=== PATIENT | female | born 1970 | race Caucasian/White ===

== ENCOUNTER 2017-09-29 08:51 | Emergency (ER) | payer MEDICAID ==
[~2017-09-29] VITALS: Ht 160 cm; Wt 101.0 kg
[~2017-09-29 08:51] MED LIST: BACT800T5 PO; IBUP600 PO; LORTA5 PO
[2017-09-29 08:53] VITALS: BP 161/102; PULSE 77; RESP 15; TEMP 98.2; O2SAT 98
[2017-09-29] MEDS ORDERED: DICY20TA10 PO (09:22)
[2017-09-29] MEDS ORDERED: AMLO10TA2 PO (09:22)
[2017-09-29] MEDS ORDERED: METF500T PO (09:22)
[2017-09-29] MEDS ORDERED: MECL12.574 PO (09:22)
[2017-09-29] MEDS ORDERED: KETOROLAC TROMETHAMINE 30 MG/ML (IVP) VIAL IV PUSH ONE (10:30)
[2017-09-29 11:01] LABS: AUTOMATED NEUTROPHIL # 4.9 TH/MM3 (1.8-7.7); BASOPHIL # 0.1 TH/MM3 (0-0.2); BASOPHIL % 0.9 % (0.0-2.0); EOSINOPHIL # 0.2 TH/MM3 (0-0.4); EOSINOPHIL % 2.4 % (0.0-4.0); HEMATOCRIT 41.3 % (35.0-46.0); HEMO FLAGS DIFF FINAL; LYMPH % 33.8 % (9.0-44.0); MEAN CELL VOLUME 89.5 FL (80.0-100.0); MEAN CORPUSCULAR HEMOGLOBIN 30.6 PG (27.0-34.0); MEAN CORPUSCULAR HGB CONC 34.2 % (32.0-36.0); MONO % 7.2 % (0.0-8.0); NEUT % 55.7 % (16.0-70.0); PLATELET COUNT 278 TH/MM3 (150-450); RED BLOOD COUNT 4.61 MIL/MM3 (4.00-5.30); RED CELL DISTRIBUTION WIDTH 12.9 % (11.6-17.2); WHITE BLOOD COUNT 8.8 TH/MM3 (4.0-11.0)
[2017-09-29 11:23] LABS: ALT (GPT) 28 U/L (10-53); ANION GAP 8 MEQ/L (5-15); BLOOD UREA NITROGEN 10 MG/DL (7-18); CHLORIDE 104 MEQ/L (98-107); GLOMERULAR FILTRATION RATE 99 ML/MIN (>89); POTASSIUM 3.9 MEQ/L (3.5-5.1); SODIUM (NA) 139 MEQ/L (136-145)
[2017-09-29 11:26] LABS: ALKALINE PHOSPHATASE 83 U/L (45-117); AST (GOT) 18 U/L (15-37); TOTAL BILIRUBIN ADULT 0.4 MG/DL (0.2-1.0)
[2017-09-29 11:57] VITALS: BP 143/95; PULSE 67; RESP 18; O2SAT 99
--- NOTE | 2017-09-29 12:11 | PD ---
HPI Chief Complaint: Musculoskeletal Complaint Time Seen by Provider: 10:16 Travel History International Travel<30 days: No Contact w/Intl Traveler<30days: No Traveled to known affect area: No History of Present Illness HPI This is a 47-year-old female with a history of hypertension, chronic upper extremity pain and numbness and tingling, and presents here with complaints of numbness and tingling of her hands. Patient also reports pain in her hands. She denies any fevers, chills. She states when she was in [place], she was prescribed pills that helped her with this pain. She states that she no longer has these pills and does not know the name of the pills. The patient is Turkmen-speaking and I asked if she wished to use an freelance interpreter/translator. She states that she was comfortable using the Turkmen-speaking nurse who had previously cared for her. I insisted that we use an freelance interpreter/translator and she again declined. PFSH Past Medical History Arthritis: Yes Anxiety: Yes Depression: No Heart Rhythm Problems: No Cancer: No Cardiovascular Problems: Yes High Cholesterol: No Chest Pain: Yes Congestive Heart Failure: No Diabetes: Yes Patient Takes Glucophage: Yes Diminished Hearing: No Endocrine: No Gastrointestinal Disorders: Yes (GASTROPARESIS) GERD: Yes Genitourinary: No Headaches: Yes Hiatal Hernia: Yes Hypertension: Yes Immune Disorder: No Implanted Vascular Access Dvce: No Musculoskeletal: Yes Neurologic: Yes Psychiatric: Yes Reproductive: No Respiratory: No Immunizations Current: Yes Ulcer: No Tetanus Vaccination: > 5 Years Influenza Vaccination: No ?: Not Menopausal: Yes : 5 Para: 3 Miscarriage: 2 Past Surgical History Abdominal Surgery: Yes (TUMMY TUCK, GALL BLADDER REMOVED, SCAR TISSUE REMOVAL x3) Appendectomy: Yes Section: Yes Cholecystectomy: Yes Gynecologic Surgery: Yes (PARTIAL HYSTERECTOMY) Hysterectomy: Yes Other Surgery: Yes (ABDOMINOPLASTY 2006) Social History Alcohol Use: No Tobacco Use: No Substance Use: No Allergies-Medications (Allergen,Severity, Reaction): Coded Allergies: penicillin G (Verified Allergy, Intermediate, RASH, 09/29/17) morphine (Verified Adverse Reaction, Severe, Nausea/Vomiting, 09/29/17) Reported Meds & Prescriptions Reported Meds & Active Scripts Active Naproxen 375 Mg Tab 375 Mg PO BID Reported Amlodipine (Amlodipine Besylate) 10 Mg Tab 10 Mg PO DAILY Metformin (Metformin HCl) 500 Mg Tab 500 Mg PO DAILY With a meal Meclizine (Meclizine HCl) 12.5 Mg Tab 12.5 Mg PO TID PRN Dicyclomine (Dicyclomine HCl) 20 Mg Tab 20 Mg PO BID Review of Systems Except as stated in HPI: all other systems reviewed are Neg General / Constitutional: No: Fever, Chills HENT: No: Headaches, Lightheadedness Cardiovascular: No: Chest Pain or Discomfort, Palpitations Respiratory: No: Cough Gastrointestinal: No: Nausea, Vomiting Genitourinary: No: Urgency Musculoskeletal: Positive: Pain (bilateral hands), No: Myalgias, Weakness Neurologic: Positive: Sensory Disturbance (numbness and tingling of hands and arms.), No: Weakness, Dizziness, Focal Abnormalities, Headache Physical Exam Narrative GENERAL: Well developed well-nourished female in no acute respiratory distress. SKIN: Focused skin assessment warm/dry. HEAD: Atraumatic. Normocephalic. EYES: Pupils equal and round. No scleral icterus. No injection or drainage. ENT: No nasal bleeding or discharge. Mucous membranes pink and moist. NECK: Trachea midline. Supple. CARDIOVASCULAR: Regular rate and rhythm. No murmur appreciated. RESPIRATORY: No accessory muscle use. Clear to auscultation. Breath sounds equal bilaterally. GASTROINTESTINAL: Abdomen soft, non-tender, nondistended. Hepatic and splenic margins not palpable. MUSCULOSKELETAL: No obvious deformities. No clubbing. No cyanosis. No edema. NEUROLOGICAL: Awake and alert. No obvious cranial nerve deficits. Motor grossly within normal limits. Normal speech. Subjective numbness and tingling to hands and forearms. PSYCHIATRIC: Appropriate mood and affect; insight and judgment normal. Data Data Last Documented VS Vital Signs Date Time Temp Pulse Resp B/P (MAP) Pulse Ox O2 Delivery O2 Flow Rate FiO2 09/29/17 11:57 67 18 143/95 (111) 99 Room Air 09/29/17 08:53 98.2 Orders Orders Complete Blood Count With Diff (09/29/17 10:16) Comprehensive Metabolic Panel (09/29/17 10:16) Iv Access Insert/Monitor (09/29/17 10:16) Ecg Monitoring (09/29/17 10:16) Oximetry (09/29/17 10:16) Ketorolac Inj (Toradol Inj) (09/29/17 10:30) Labs Laboratory Tests Test 09/29/17 10:40 White Blood Count 8.8 TH/MM3 Red Blood Count 4.61 MIL/MM3 Hemoglobin 14.1 GM/DL Hematocrit 41.3 % Mean Corpuscular Volume 89.5 FL Mean Corpuscular Hemoglobin 30.6 PG Mean Corpuscular Hemoglobin Concent 34.2 % Red Cell Distribution Width 12.9 % Platelet Count 278 TH/MM3 Mean Platelet Volume 8.7 FL Neutrophils (%) (Auto) 55.7 % Lymphocytes (%) (Auto) 33.8 % Monocytes (%) (Auto) 7.2 % Eosinophils (%) (Auto) 2.4 % Basophils (%) (Auto) 0.9 % Neutrophils # (Auto) 4.9 TH/MM3 Lymphocytes # (Auto) 3.0 TH/MM3 Monocytes # (Auto) 0.6 TH/MM3 Eosinophils # (Auto) 0.2 TH/MM3 Basophils # (Auto) 0.1 TH/MM3 CBC Comment DIFF FINAL Differential Comment Blood Urea Nitrogen 10 MG/DL Creatinine 0.64 MG/DL Random Glucose 97 MG/DL Total Protein 8.4 GM/DL Albumin 3.6 GM/DL Calcium Level 8.8 MG/DL Alkaline Phosphatase 83 U/L Aspartate Amino Transf (AST/SGOT) 18 U/L Alanine Aminotransferase (ALT/SGPT) 28 U/L Total Bilirubin 0.4 MG/DL Sodium Level 139 MEQ/L Potassium Level 3.9 MEQ/L Chloride Level 104 MEQ/L Carbon Dioxide Level 27.0 MEQ/L Anion Gap 8 MEQ/L Estimat Glomerular Filtration Rate 99 ML/MIN [facility] Medical Decision Making Medical Screen Exam Complete: Yes Emergency Medical Condition: Yes Differential Diagnosis Neuropathy versus metabolic arrangement versus Raynaud's phenomenon Narrative Course 47-year-old female presents today with complaints of acute exacerbation of chronic upper extremity pain and numbness and tingling. Patient was treated in [place] for the same. She states that she does not recall the medication that they gave her. The patient's elect lites are all within normal limits. She was given 30 mg of IVD Toradol. She states that it greatly improved her discomfort. Discharged with a prescription for Naprosyn 375 by mouth twice a day as needed. I recommended she follow up with a neurologist for further evaluation to make sure that this is not neuropathy related. Diagnosis Primary Impression: bilateral upper extremity pain and numbness and tingling. Additional Impression: History of diabetes mellitus Additional Instructions: Follow up with neurologist. Take medication with food. Med/Other Pt SpecificInfo: Prescription(s) given Scripts Naproxen (Naproxen) 375 Mg Tab 375 MG PO BID, #60 TAB 0 Refills Prov: Jamal Savage MD 09/29/17 Disposition: 01 DISCHARGE HOME Condition: Stable Jamal Savage MD Sep 29, 2017 12:11
[2017-09-29] MEDS ORDERED: NAPR-855 PO (12:44)
[2017-09-29 13:20] VITALS: BP 131/88
== END 2017-09-29 13:20 | disposition home or self-care (01) ==
LOC: NEPE 08:51
DX: M79.601 Pain in right arm (principal); M79.602 Pain in left arm; R20.0 Anesthesia of skin; R20.2 Paresthesia of skin; E11.9 Type 2 diabetes mellitus without complications; I10 Essential (primary) hypertension; Z79.84 Long term (current) use of oral hypoglycemic drugs
CPT/HCPCS: 80053; 85025; 96374; 99284; J1885

== ENCOUNTER 2018-06-12 06:23 | Observation (INO) ==
--- NOTE | 2018-06-12 06:44 | ED ---
HPI General Chief Complaint: Abdominal Pain Stated Complaint: Abd pain Time Seen by Provider: 06/12/18 06:49 Source: patient Mode of arrival: ambulatory History of Present Illness HPI narrative: 48-year-old female patient with history of multiple medical issues, previous vertigo, gastroparesis, cholecystectomy, presents to the ER today with a 10 out of 10 upper abdominal pain, nausea, and dizziness. She denies any vomiting, fevers, or other symptoms. Symptoms are similar to previous episodes according to her . However, he states that this is a bit different because she states that it feels like she is very dizzy, when she closes her eyes it feels like she is falling into a big hole. Related Data Home Medications Medication Instructions Recorded Confirmed amlodipine 10 mg PO DAILY 06/12/18 06/12/18 ibuprofen [Motrin IB] 800 mg PO TID 06/12/18 06/12/18 metformin 500 mg PO DAILY 06/12/18 06/12/18 metoclopramide HCl 5 mg PO TID 06/12/18 06/12/18 -[id number] oil 1 cap PO DAILY 06/12/18 06/12/18 omeprazole 20 mg PO DAILY 06/12/18 06/12/18 ondansetron HCl 4 mg PO TID PRN 06/12/18 06/12/18 polymyxin B sulf-trimethoprim 1 drp OPHTHALMIC (EYE) Q3H 06/12/18 06/12/18 timolol maleate 1 drop EACH EYE BID 06/12/18 06/12/18 Allergies Allergy/AdvReac Type Severity Reaction Status Date / Time penicillin G Allergy Intermediate RASH Verified 06/12/18 06:28 morphine AdvReac Severe Nausea/Vomi Verified 06/12/18 06:28 ting Review of Systems Except as stated in HPI: all other systems reviewed are negative PMFSH History History Provided By: Patient and Family Member Medical History Medical History Colon polyp (Acute) Diabetes (Acute) Diverticulosis (Acute) Fibroid uterus (Acute) Hx of hysterectomy (Acute) Hypertension (Acute) IBS (irritable bowel syndrome) (Acute) Surgical History Surgical History H/O eye surgery (Acute) History of abdominoplasty (Acute) History of cholecystectomy (Acute) History of myomectomy (Acute) Social History Social History Substance History: No History of Abuse Second Hand Smoke Exposure: No Smoking Status: Never smoker Tobacco Type: Cigarettes How Often Do You Have a Drink Containing Alcohol: Never Recent Travel in [facility] within the Last 8 Weeks: No Recent Out of Country Travel within the Last 8 Weeks: No Exam Narrative Exam Narrative: GENERAL: Well-developed obese middle-age female patient currently in moderate distress, fairly anxious. Awake and oriented 3. SKIN: Focused skin assessment warm/dry. HEAD: Atraumatic. Normocephalic. EYES: Pupils equal and round. No scleral icterus. No injection or drainage. ENT: No nasal bleeding or discharge. Mucous membranes pink and moist. NECK: Trachea midline. No JVD. CARDIOVASCULAR: Regular rate and rhythm. No murmur appreciated. RESPIRATORY: No accessory muscle use. Clear to auscultation. Breath sounds equal bilaterally. GASTROINTESTINAL: Abdomen soft, obese, right upper quadrant and epigastric tenderness without guarding rebound, nondistended. Hepatic and splenic margins not palpable. MUSCULOSKELETAL: No obvious deformities. No clubbing. No cyanosis. No edema. NEUROLOGICAL: Awake and alert. No obvious cranial nerve deficits. Motor grossly within normal limits. Normal speech. PSYCHIATRIC: Anxious mood and affect; insight and judgment normal. Course Hospital Course: Lab work, EKG and CAT scan was ordered for the patient. She was given IV fluids and nausea medications. Initial Documented Vital Signs Temperature 97.9 F 06/12/18 06:25 Pulse Rate 70 06/12/18 06:25 Respiratory Rate 20 06/12/18 06:25 Blood Pressure 168/89 H 06/12/18 06:25 Pulse Oximetry 99 06/12/18 06:25 Last Documented Vital Signs Temperature 97.9 F 06/13/18 04:00 Pulse Rate 77 06/13/18 04:00 Respiratory Rate 18 06/13/18 04:00 Blood Pressure 124/81 06/13/18 04:00 Pulse Oximetry 98 06/13/18 04:00 Sign Out Sign Out Data: Patient Sign Out occurred on 06/12/18 at 07:37. Patient's care was discussed, and care was transferred from Leonel Ortega MD to Jamal Savage MD. Sign Out Comment: Case is signed out to oncoming physician at 7 AM lab work and CAT scan workup. Disposition based on reevaluation findings. Last updated by Leonel Ortega MD at 06/12/18 06:52 Medical Decision Making MDM Narrative Medical decision making narrative: The patient was signed out to me by Dr. Ortega change of shift. The patient had presented with complaints of abdominal pain and dizziness. The patient has a history of diabetes mellitus, hypertension and gastroparesis. CT scan of both the head and abdomen are negative. The labs are essentially negative. The patient was noted to have 2 separate episodes of desaturations into the low 60s when falling asleep. Concern this could be related to her dizziness that she experienced. states it was more severe this morning than she has ever had. Given this, I would recommend that she be admitted under observation for possible workup for home O2 until she can have an appropriate sleep study. Case was discussed with the resident team under Dr. Avila. Differential Diagnosis Differential Diagnosis: Gastroenteritis versus gastroparesis versus benign positional vertigo versus anxiety attack Lab Data Result diagrams: 06/12/18 06:45 06/12/18 06:45 Lab Results 06/12/18 06/12/18 06/12/18 Range/Units 06:45 06:45 09:50 WBC 10.3 (4.0-11.0) th/mm3 RBC 4.60 (4.00-5.30) mil/mm3 Hgb 13.7 (11.6-15.3) gm/dL Hct 41.0 (35.0-46.0) % MCV 89.2 (80.0-100.0) fL MCH 29.9 (27.0-34.0) pg MCHC 33.5 (32.0-36.0) % RDW 13.7 (11.6-17.2) % Plt Count 288 (150-450) th/mm3 MPV 9.0 (7.0-11.0) fL Neut % (Auto) 67.6 (16.0-70.0) % Lymph % (Auto) 25.2 (9.0-44.0) % Glenn % (Auto) 5.1 (0.0-8.0) % Eos % (Auto) 1.7 (0.0-4.0) % Baso % (Auto) 0.4 (0.0-2.0) % Neut # (Auto) 7.0 (1.8-7.7) th/mm3 Lymph # (Auto) 2.6 (1.0-4.8) th/mm3 Glenn # (Auto) 0.5 (0.0-0.9) th/mm3 Eos # (Auto) 0.2 (0.0-0.4) th/mm3 Baso # (Auto) 0.0 (0.0-0.2) th/mm3 WBC Differential . Differential Comment Auto diff final Sodium 138 (136-145) meq/L Potassium 3.9 (3.5-5.1) meq/L Chloride 105 (98-107) meq/L Carbon Dioxide 25.2 (21.0-32.0) meq/L Anion Gap 8 (5-15) meq/L BUN 13 (7-18) mg/dL Creatinine 0.74 (0.50-1.00) mg/dL Estimated GFR 83 L (>89) mL/min POC Glucose (68-110) mg/dl Random Glucose 173 H (74-106) mg/dL Calcium 9.0 (8.5-10.1) mg/dL Total Bilirubin 0.2 (0.2-1.0) mg/dL AST 37 (15-37) U/L ALT 58 H (10-53) U/L Alkaline Phosphatase 102 (45-117) U/L Troponin I (0.02-0.05) ng/mL Total Protein 8.3 H (6.4-8.2) g/dL Albumin 3.8 (3.4-5.0) g/dL Lipase 209 (73-393) U/L Urine Color Colorless (Yellw/Straw) Urine Clarity Clear (Clear) Urine pH 7.0 (5.0-8.5) Ur Specific [place] 1.019 (1.002-1.035) Urine Protein 100 H (Neg-Trace) mg/dL Urine Glucose (UA) Negative (Negative) mg/dL Urine Ketones Negative (Negative) mg/dL Urine Occult Blood Small H (Negative) Urine Nitrate Negative (Negative) Urine Bilirubin Negative (Negative) Urine Urobilinogen Less than 2 (Less than 2) mg/dL Ur Leukocyte Esterase Negative (Negative) Urine RBC 1 (0-3) /hpf Urine WBC 1 (0-5) /hpf Micro UA Comment Culture not ind Urine Culture Comments Culture not ind 06/12/18 06/12/18 06/12/18 Range/Units 15:41 18:18 19:52 WBC (4.0-11.0) th/mm3 RBC (4.00-5.30) mil/mm3 Hgb (11.6-15.3) gm/dL Hct (35.0-46.0) % MCV (80.0-100.0) fL MCH (27.0-34.0) pg MCHC (32.0-36.0) % RDW (11.6-17.2) % Plt Count (150-450) th/mm3 MPV (7.0-11.0) fL Neut % (Auto) (16.0-70.0) % Lymph % (Auto) (9.0-44.0) % Glenn % (Auto) (0.0-8.0) % Eos % (Auto) (0.0-4.0) % Baso % (Auto) (0.0-2.0) % Neut # (Auto) (1.8-7.7) th/mm3 Lymph # (Auto) (1.0-4.8) th/mm3 Glenn # (Auto) (0.0-0.9) th/mm3 Eos # (Auto) (0.0-0.4) th/mm3 Baso # (Auto) (0.0-0.2) th/mm3 WBC Differential Differential Comment Sodium (136-145) meq/L Potassium (3.5-5.1) meq/L Chloride (98-107) meq/L Carbon Dioxide (21.0-32.0) meq/L Anion Gap (5-15) meq/L BUN (7-18) mg/dL Creatinine (0.50-1.00) mg/dL Estimated GFR (>89) mL/min POC Glucose 126 H 178 H (68-110) mg/dl Random Glucose (74-106) mg/dL Calcium (8.5-10.1) mg/dL Total Bilirubin (0.2-1.0) mg/dL AST (15-37) U/L ALT (10-53) U/L Alkaline Phosphatase (45-117) U/L Troponin I Less than 0.02 L (0.02-0.05) ng/mL Total Protein (6.4-8.2) g/dL Albumin (3.4-5.0) g/dL Lipase (73-393) U/L Urine Color (Yellw/Straw) Urine Clarity (Clear) Urine pH (5.0-8.5) Ur Specific [place] (1.002-1.035) Urine Protein (Neg-Trace) mg/dL Urine Glucose (UA) (Negative) mg/dL Urine Ketones (Negative) mg/dL Urine Occult Blood (Negative) Urine Nitrate (Negative) Urine Bilirubin (Negative) Urine Urobilinogen (Less than 2) mg/dL Ur Leukocyte Esterase (Negative) Urine RBC (0-3) /hpf Urine WBC (0-5) /hpf Micro UA Comment Urine Culture Comments Imaging Data Radiologist's impression: Abdomen/Pelvis CT 06/12/18 06:42 CONCLUSION: 1. Fatty liver. 2. Radiopaque densities in the patient's rectum not present previously of uncertain etiology. Head CT 06/12/18 06:47 CONCLUSION: No acute intracranial abnormality is identified. Discharge Plan Discharge Disposition Patient Disposition: 30 Still Patient Discharge Details Diagnosis: Oxygen desaturation during sleep, Dizziness, Abdominal pain, Diabetes mellitus , Diabetic gastroparesis Physicians Team ED Provider: Jamal Savage Primary Care Provider: Judi Lopez Attending Provider: Alesha Avila Status ED Status: Left Department Discharge Information Discharge Date/Time: 06/12/18 17:07
[2018-06-12 07:18] LABS: Baso % (Auto) 0.4 % (0.0-2.0); Eos # (Auto) 0.2 th/mm3 (0.0-0.4); Eos % (Auto) 1.7 % (0.0-4.0); Hemoglobin 13.7 gm/dL (11.6-15.3); Lymph # (Auto) 2.6 th/mm3 (1.0-4.8); Lymph % (Auto) 25.2 % (9.0-44.0); Mean Corpuscular HGB Conc 33.5 % (32.0-36.0); Mean Corpuscular Hemoglobin 29.9 pg (27.0-34.0); Mean Corpuscular Volume 89.2 fL (80.0-100.0); Mono # (Auto) 0.5 th/mm3 (0.0-0.9); Mono % (Auto) 5.1 % (0.0-8.0); Neut % (Auto) 67.6 % (16.0-70.0); Platelet Count 288 th/mm3 (150-450); Red Cell Distribution Width 13.7 % (11.6-17.2); White Blood Count 10.3 th/mm3 (4.0-11.0)
[2018-06-12 07:38] LABS: Alanine Aminotransferase 58 U/L (10-53); Albumin 3.8 g/dL (3.4-5.0); Anion Gap 8 meq/L (5-15); Aspartate Aminotransferase 37 U/L (15-37); Blood Urea Nitrogen 13 mg/dL (7-18); Carbon Dioxide 25.2 meq/L (21.0-32.0); Chloride 105 meq/L (98-107); Glomerular Filtration Rate 83 mL/min (>89); Glucose,Random 173 mg/dL (74-106); Lipase 209 U/L (73-393); Potassium 3.9 meq/L (3.5-5.1); Sodium 138 meq/L (136-145)
[2018-06-12 07:40] LABS: Alkaline Phosphatase 102 U/L (45-117); Total Protein 8.3 g/dL (6.4-8.2)
--- NOTE | 2018-06-12 08:37 | CT ---
EXAM DATE: 06/12/2018 8:28 AM EDT AGE/SEX: 48 years / Female INDICATIONS: Dizziness and weakness. CLINICAL DATA: This is the patient's initial encounter. Patient reports that signs and symptoms have been present for 1 day and indicates a pain score of 0/10. MEDICAL/SURGICAL HISTORY: Diabetes. Hypertension. Hysterectomy. Cholecystectomy. RADIATION DOSE: 54.65 CTDI (mGy) COMPARISON: [facility], CT BRAIN W/O CONTRAST, 06/25/2013. . TECHNIQUE: CT of the head without contrast. Using automated exposure control and adjustment of the mA and/or kV according to patient size, radiation dose was kept as low as reasonably achievable to ob tain optimal diagnostic quality images. DICOM format image data is available electronically for revi ew and comparison. FINDINGS: Cerebrum: The ventricles are normal. No midline shift, mass lesion, hemorrhage or acute infarction. No extraaxial fluid collections are seen. Posterior Fossa: The cerebellum and brainstem demonstrate no acute abnormality. The 4th ventricle is midline. The cerebellopontine angle is within normal limits. Extracranial: There is mucoperiosteal thickening within the sphenoid sinus, similar to the prior exa mination. The remaining paranasal sinuses and mastoid air cells are clear. Skull: The calvaria is intact. No skull fracture. CONCLUSION: No acute intracranial abnormality is identified. Electronically signed by: Duy Ahs MD 06/12/2018 8:35 AM EDT
--- NOTE | 2018-06-12 09:10 | CT ---
EXAM DATE: 06/12/2018 8:36 AM EDT AGE/SEX: 48 years / Female INDICATIONS: Upper abdominal pain. Weakness. CLINICAL DATA: This is the patient's initial encounter. Patient reports that signs and symptoms have been present for 2 days and indicates a pain score of 7/10. MEDICAL/SURGICAL HISTORY: Diabetes. Hypertension. Cholecystectomy. Hysterectomy. ORAL CONTRAST: No oral contrast ingested. RADIATION DOSE: 16.95 CTDI (mGy) COMPARISON: [facility], CT ABDOMEN AND PELVIS W/ CONTRAST, 01/12/2018. . TECHNIQUE: Multiple contiguous axial images were obtained through the abdomen and pelvis following b olus infusion of 92 ml Omnipaque 350 (iohexol) nonionic water-soluble contrast as a single exam dos e. No oral contrast ingested. Using automated exposure control and adjustment of the mA and/or kV ac cording to patient size, radiation dose was kept as low as reasonably achievable to obtain optimal di agnostic quality images. DICOM format image data is available electronically for review and comparis on. FINDINGS: Abdomen CT: The spleen, pancreas, kidneys, adrenals are unremarkable. The liver is diffusely fatty without focal lesions for technique. There is evidence for prior cholecystectomy. There is no evidence for any sangeetha reciable pathological adenopathy, free fluid, or bowel obstruction. Pelvic CT: There is no evidence for mass, abscess formation, or any significant adenopathy within the pelvis. A pproximate 1.5 cm radiopaque density is present inside the rectum of uncertain etiology. CONCLUSION: 1. Fatty liver. 2. Radiopaque densities in the patient's rectum not present previously of uncertain etiology. Electronically signed by: Chavo Easton MD 06/12/2018 9:08 AM EDT
[2018-06-12 10:16] LABS: Bilirubin,Urine Negative (Negative); Clarity,Urine Clear (Clear); Color,Urine Colorless (Yellw/Straw); Glucose,Urine (UA) Negative (Negative); Leukocyte Esterase,Urine Negative (Negative); Nitrite,Urine Negative (Negative); Specific Gravity,Urine 1.019 (1.002-1.035)
[2018-06-12] MEDS ORDERED: Senna/Docusate Sodium 8.6/50 MG Tablet PO PRN (15:14)
[2018-06-12] MEDS ORDERED: Temazepam 15 MG Capsule PO PRN (15:14)
[2018-06-12] MEDS ORDERED: Bisacodyl 10 MG Supp RECTAL PRN (15:14)
[2018-06-12] MEDS ORDERED: Acetaminophen 325 MG Tablet PO PRN (15:20)
[2018-06-12] MEDS ORDERED: Dextrose 50% in Water 50 ML Vial IV.PUSH PRN (15:29)
--- NOTE | 2018-06-12 15:32 | P.HPFP ---
History of Present Illness Primary Care Physician: Judi Lopez MD <Alesha Avila 06/13/18 14:23> Judi Lopez MD <Elyse Granado 06/12/18 15:32> Chief Complaint: dizziness <Elyse Granado 06/12/18 19:18> History of Present Illness: Patient is a 48-year-old female with past medical history of diabetes complicated by gastroparesis, hypertension, and vertigo who presented to the ED with complaints of dizziness and nausea accompanied by Right sided abdominal pain. Patient reports that around 4 AM this morning she was getting up to use the bathroom, she felt feeling dizzy and laid in bed. She stated that she had a feeling like she was sinking. she reports a Right sided abdominal pain radiating to her right lower back. Denies any vomiting. She also reports pressure-like nonradiating midsternal chest pain brought on by deep breathing. Patient reports that when she lays flat she feels short of breath and usually sleeps propped with 3 pillows. Endorses generalized fatigue. Denies falling, fever, chills, LE swelling, diarrhea, dysuria and LOC. At home patient patient blood sugar was 126 and her blood pressure was 134/90. Of note patient also has a history of panic attacks last panic attack occurred 6 months ago due to the passing of her mother. In the ED patient was noted to have 2 episodes of O2 desaturation to the low 60s when asleep. Her saturations returned back to 9697% when she was awakened. <Elyse Granado 06/12/18 19:18> - Diagnosis (1) Dizziness (2) Oxygen desaturation during sleep (3) Abdominal pain (4) Hypertension (5) Diabetes mellitus (6) Diabetic gastroparesis (7) Nutrition, metabolism, and development symptoms <Alesha Avila 06/13/18 14:23> (1) Dizziness (2) Oxygen desaturation during sleep (3) Abdominal pain (4) Hypertension (5) Diabetes mellitus (6) Diabetic gastroparesis (7) Nutrition, metabolism, and development symptoms <Elyse Granado 06/12/18 18:21> Review of Systems All other systems reviewed negative except as stated in HPI <Elyse Granado 06/12/18 19:18> [facility] - History History Provided By: Patient, Family Member <Elyse Granado 06/12/18 15:32> - Medical History Medical History: Medical History (Last Updated 06/12/18 @ 16:19 by Norah Mandujano) Colon polyp Diabetes Diverticulosis Fibroid uterus Hx of hysterectomy Hypertension IBS (irritable bowel syndrome) <Alesha Avila - 06/13/18 14:23> Medical History (Last Updated 06/12/18 @ 16:19 by Norah Mandujano) Colon polyp Diabetes Diverticulosis Fibroid uterus Hx of hysterectomy Hypertension IBS (irritable bowel syndrome) <Elyse Granado 06/12/18 19:18> - Surgical History Surgical History: Surgical History (Last Updated 06/12/18 @ 16:19 by Norah Mandujano) H/O eye surgery History of abdominoplasty History of cholecystectomy History of myomectomy <Alesha Avila - 06/13/18 14:23> Surgical History (Last Updated 06/12/18 @ 16:19 by Norah Mandujano) H/O eye surgery History of abdominoplasty History of cholecystectomy History of myomectomy <Elyse Granado 06/12/18 19:18> - Tobacco History Second Hand Smoke Exposure: No <Elyse Granado 06/12/18 15:32> Smoking Status: Never smoker <Elyse Granado 06/12/18 15:32> Tobacco Type: Cigarettes <Elyse Granado 06/12/18 15:32> - Alcohol History How Often Do You Have a Drink Containing Alcohol: Never <Elyse Granado 15:32> - Substance Use History Substance History: No History of Abuse <Elyse Granado 06/12/18 15:32> - Travel History Recent Travel in the [place] Within the Last 8 Weeks: No <Elyse Granado 15:32> Recent Travel Out of the Country Within the Last 8 Weeks: No <Elyse Granado 06/12/18 15:32> - Immunization History Tetanus Immunization: >5 Years <Elyse Granado - 06/12/18 15:32> Hx Influenza Vaccine This Season: No <Elyse Granado D - 06/12/18 15:32> Medications and Allergies Allergies Allergy/AdvReac Type Severity Reaction Status Date / Time penicillin G Allergy Intermediate RASH Verified 06/12/18 06:28 morphine AdvReac Severe Nausea/Vomi Verified 06/12/18 06:28 ting <Alesha Avila M - 06/13/18 14:23> Home Medications Medication Instructions Recorded Confirmed Type amlodipine 10 mg PO DAILY 06/12/18 06/12/18 History ibuprofen [Motrin IB] 800 mg PO TID 06/12/18 06/12/18 History metformin 500 mg PO DAILY 06/12/18 06/12/18 History metoclopramide HCl 5 mg PO TID 06/12/18 06/12/18 History [id number] oil 1 cap PO DAILY 06/12/18 06/12/18 History omeprazole 20 mg PO DAILY 06/12/18 06/12/18 History ondansetron HCl 4 mg PO TID PRN 06/12/18 06/12/18 History polymyxin B sulf-trimethoprim 1 drp OPHTHALMIC (EYE) Q3H 06/12/18 06/12/18 History timolol maleate 1 drop EACH EYE BID 06/12/18 06/12/18 History <Alesha Avila - 06/13/18 14:23> Active Medications: Active Medications Acetaminophen (Tylenol) 650 mg PO Q6HR PRN PRN Reason: PAIN 1-10 AND/OR FEVER >101F Last Admin: 06/13/18 09:23 Dose: 650 mg Al Hydroxide/Mg Hydroxide (Milk Of Magnesia Liq) 30 ml PO Q12H PRN PRN Reason: Mild Constipation Amlodipine Besylate (Norvasc) 10 mg PO DAILY [facility] Last Admin: 06/13/18 09:22 Dose: 10 mg Bisacodyl (Dulcolax Supp) 10 mg RECTAL DAILY PRN PRN Reason: SEVERE CONSITIPATION Dextrose (D50w Vial) 50 ml IV.PUSH UNSCH PRN PRN Reason: PER HYPOGLYCEMIA PROTOCOL Erythromycin Ethylsuccinate (Ees 200 Mg/5 Ml Liq) 100 mg PO AC [facility] Glucagon (Glucagon Inj) 1 mg OTHER PRN PRN PRN Reason: for Hypoglycemia Protocol Insulin Aspart (Novolog Insulin Correctional Sugar Inj) 0 unit SQ ACHS [facility]; Protocol Last Admin: 06/13/18 09:27 Dose: Not Given Lactulose (Lactulose Liq) 30 ml PO DAILY PRN PRN Reason: SEVERE CONSITIPATION Metoclopramide HCl (Reglan) 5 mg PO TID [facility] Last Admin: 06/13/18 09:22 Dose: 5 mg Ondansetron HCl (Zofran Odt) 4 mg PO Q6H PRN PRN Reason: NAUSEA OR VOMITING Last Admin: 06/12/18 16:08 Dose: 4 mg Pantoprazole Sodium (Protonix) 20 mg PO DAILY [facility] Last Admin: 06/13/18 09:22 Dose: 20 mg Senna/Docusate Sodium (Kourtney-Colace) 1 tab PO BID PRN PRN Reason: SEVERE CONSTIPATION Sennosides (Senokot) 17.2 mg PO Q12H PRN PRN Reason: Moderate Constipation Sodium Chloride (Ns Flush) 2 ml IV.FLUSH PRN PRN PRN Reason: FLUSH AFTER USING IV ACCESS Temazepam (Restoril) 15 mg PO HS PRN PRN Reason: INSOMNIA Timolol Maleate (Timoptic 0.5% Drops) 1 drops EACH EYE BID [facility] Last Admin: 06/13/18 00:14 Dose: Not Given <Alesha Avila - 06/13/18 14:23> Active Medications Acetaminophen (Tylenol) 650 mg PO Q6HR PRN PRN Reason: PAIN 1-10 AND/OR FEVER >101F Al Hydroxide/Mg Hydroxide (Milk Of Magnesia Liq) 30 ml PO Q12H PRN PRN Reason: Mild Constipation Amlodipine Besylate (Norvasc) 10 mg PO DAILY [facility] Bisacodyl (Dulcolax Supp) 10 mg RECTAL DAILY PRN PRN Reason: SEVERE CONSITIPATION Dextrose (D50w Vial) 50 ml IV.PUSH UNSCH PRN PRN Reason: PER HYPOGLYCEMIA PROTOCOL Glucagon (Glucagon Inj) 1 mg OTHER PRN PRN PRN Reason: for Hypoglycemia Protocol Insulin Aspart (Novolog Insulin Correctional Sugar Inj) 0 unit SQ ACHS [facility]; Protocol Lactulose (Lactulose Liq) 30 ml PO DAILY PRN PRN Reason: SEVERE CONSITIPATION Non-Formulary Medication (Metoclopramide Hcl [Metoclopramide Hcl]) 5 mg PO TID [facility] Non-Formulary Medication (Omeprazole [Omeprazole]) 20 mg PO DAILY [facility] Ondansetron HCl (Zofran Odt) 4 mg PO Q6H PRN PRN Reason: NAUSEA OR VOMITING Senna/Docusate Sodium (Kourtney-Colace) 1 tab PO BID PRN PRN Reason: SEVERE CONSTIPATION Sennosides (Senokot) 17.2 mg PO Q12H PRN PRN Reason: Moderate Constipation Sodium Chloride (Ns Flush) 2 ml IV.FLUSH PRN PRN PRN Reason: FLUSH AFTER USING IV ACCESS Temazepam (Restoril) 15 mg PO HS PRN PRN Reason: INSOMNIA Timolol Maleate (Timoptic 0.5% Drops) drops EACH EYE BID [facility] <Elyse Granado D - 06/12/18 15:32> Exam Vital signs: Vital Signs 06/12/18 16:00 06/12/18 16:45 06/12/18 20:00 Temperature 98.3 F 97.7 F 97.9 F Pulse Rate 85 81 84 Respiratory Rate 20 20 18 Blood Pressure 159/65 H 135/74 138/75 Pulse Oximetry 93 L 94 L 06/12/18 23:55 06/13/18 00:00 06/13/18 04:00 Temperature 97.7 F 97.9 F Pulse Rate 88 84 68 Respiratory Rate 18 18 Blood Pressure 129/79 124/81 Pulse Oximetry 95 98 06/13/18 08:00 06/13/18 12:00 Temperature 97.4 F L 97.6 F Pulse Rate 70 73 Respiratory Rate 20 20 Blood Pressure 144/67 H 140/66 Pulse Oximetry 98 98 Intake & Output 06/12/18 06/13/18 06/13/18 18:59 06:59 18:59 Intake Total 240 / 240 360 / 360 Output Total 2 / 2 Balance 240 / 240 358 / 358 Weight 114.4 kg 114.8 kg Intake: Oral 240 / 240 360 / 360 Output: Urine 2 / 2 Other: # Voids 2 Weight On Admission 114.4 kg <Alesha Avila M - 06/13/18 14:23> Vital Signs 06/12/18 06:25 06/12/18 07:36 06/12/18 09:35 Temperature 97.9 F Pulse Rate 70 81 91 H Respiratory Rate 20 20 16 Blood Pressure 168/89 H 144/72 H 144/72 H Pulse Oximetry 99 97 95 06/12/18 09:40 06/12/18 09:42 06/12/18 13:30 Temperature Pulse Rate Respiratory Rate Blood Pressure Pulse Oximetry 65 L 95 62 L 06/12/18 13:32 06/12/18 14:17 Temperature Pulse Rate 81 Respiratory Rate 20 Blood Pressure 154/97 H Pulse Oximetry 95 96 Intake & Output 06/11/18 06/12/18 06/12/18 18:59 06:59 18:59 Weight 113.398 kg <Elyse Granado 06/12/18 15:32> - Constitutional no acute distress <Elyse Granado 06/12/18 19:18> - Routine HEENT Exam Eye: Present: EOMI, PERRL <Elyse Granado 06/12/18 19:18> ENT: Present: mucous membranes moist <Elyse Granado 06/12/18 19:18> - Routine Neck Exam Present: supple, full ROM. Absent: JVD <Elyse Granado 06/12/18 19:18> - Routine Chest/Breast/Axilla Exam Chest wall: Present: tenderness <Elyse Granado 06/12/18 19:18> - Routine Respiratory Exam Present: CTA bilaterally. Absent: accessory muscle use <Elyse Granado 19:18> - Routine Cardiovascular Exam Present: RRR, S1, S2. Absent: murmur, gallop, rubs <Elyse Granado 19:18> - Routine Abdominal Exam Present: soft, normoactive bowel sounds, tenderness (diffused tenderness to palpation, more pronounced on RUQ and RLQ and RIght flank pain. ). Absent: rebound, guarding <Elyse Granado 06/12/18 19:18> - Routine Extremities Exam Present: full ROM, pulses intact, normal capillary refill, tenderness (Mild Right medial ankle tenderness to palpation, chronic issue). Absent: cyanosis, clubbing, edema, calf tenderness <Elyse Granado 06/12/18 19:18> - Routine Skin Exam Present: intact. Absent: cyanosis, erythema <Elyse Granado - 06/12/18 19:18 > - Routine Neurological Exam Present: alert, oriented X3, CN II-XII intact, moving all extremities. Absent: sensory deficit, motor deficit <Elyse Granado - 06/12/18 19:18> Results - Labs Result diagrams: 06/13/18 06:02 06/13/18 06:02 <Alesha Avila - 06/13/18 14:23> Abnormal lab results 06/12/18 06/12/18 06/12/18 Range/Units 15:41 18:18 19:52 Estimated GFR (>89) mL/min POC Glucose 126 H 178 H (68-110) mg/dl Random Glucose (74-106) mg/dL Troponin I Less than 0.02 L (0.02-0.05) ng/mL 06/13/18 06/13/18 06/13/18 Range/Units 06:02 08:35 13:13 Estimated GFR 86 L (>89) mL/min POC Glucose 145 H 130 H (68-110) mg/dl Random Glucose 122 H (74-106) mg/dL Troponin I (0.02-0.05) ng/mL Short CBC 06/13/18 Range/Units 06:02 WBC 8.0 (4.0-11.0) th/mm3 Hgb 13.6 (11.6-15.3) gm/dL Hct 40.5 (35.0-46.0) % Plt Count 284 (150-450) th/mm3 [facility] 06/13/18 06:02 Sodium 142 Potassium 4.1 Chloride 103 Carbon Dioxide 30.8 BUN 12 Creatinine 0.72 Calcium 9.1 Cardiac Enzymes 06/12/18 Range/Units 15:41 Troponin I Less than 0.02 L (0.02-0.05) ng/mL <Alesha Avila - 06/13/18 14:23> Abnormal lab results 06/12/18 06/12/18 Range/Units 06:45 09:50 Estimated GFR 83 L (>89) mL/min Random Glucose 173 H (74-106) mg/dL ALT 58 H (10-53) U/L Total Protein 8.3 H (6.4-8.2) g/dL Urine Protein 100 H (Neg-Trace) mg/dL Urine Occult Blood Small H (Negative) Short CBC 06/12/18 Range/Units 06:45 WBC 10.3 (4.0-11.0) th/mm3 Hgb 13.7 (11.6-15.3) gm/dL Hct 41.0 (35.0-46.0) % Plt Count 288 (150-450) th/mm3 BMP 06/12/18 06:45 Sodium 138 Potassium 3.9 Chloride 105 Carbon Dioxide 25.2 BUN 13 Creatinine 0.74 Calcium 9.0 Liver Function 06/12/18 Range/Units 06:45 Total Bilirubin 0.2 (0.2-1.0) mg/dL AST 37 (15-37) U/L ALT 58 H (10-53) U/L Alkaline Phosphatase 102 (45-117) U/L Albumin 3.8 (3.4-5.0) g/dL Urine 06/12/18 Range/Units 09:50 Urine Color Colorless (Yellw/Straw) Urine Clarity Clear (Clear) Urine pH 7.0 (5.0-8.5) Ur Specific [place] 1.019 (1.002-1.035) Urine Protein 100 H (Neg-Trace) mg/dL Urine Glucose (UA) Negative (Negative) mg/dL <Elyse Granado - 06/12/18 15:32> - Imaging Impressions Abdomen/Pelvis CT 06/12/18 06:42 CONCLUSION: 1. Fatty liver. 2. Radiopaque densities in the patient's rectum not present previously of uncertain etiology. Head CT 06/12/18 06:47 CONCLUSION: No acute intracranial abnormality is identified. <Elyse Granado 06/12/18 15:32> Caprini VTE Risk Assessment Caprini VTE Risk Assessment: No/Low Risk (score <= 1) <Elyse Granado 06/12 19:18> Caprini Risk Assessment Model: Point Value = 1 Point Value = 2 Point Value = 3 Point Value = 5 Age 41-60 Minor surgery BMI > 25 kg/m2 Swollen legs Varicose veins or History of unexplained or recurrent spontaneous Oral contraceptives or hormone replacement Sepsis (< 1 month) Serious lung disease, including pneumonia (< 1 month) Abnormal pulmonary function Acute myocardial infarction Congestive heart failure (< 1 month) History of inflammatory bowel disease Medical patient at bed rest Age 61-74 Arthroscopic surgery Major open surgery (> 45 min) Laparoscopic surgery (> 45 min) Malignancy Confined to bed (> 72 hours) Immobilizing plaster cast Central venous access Age >= 75 History of VTE Family history of VTE Factor V Leiden Prothrombin [id number] Lupus anticoagulant Anticardiolipin antibodies Elevated serum homocysteine Heparin-induced thrombocytopenia Other congenital or acquired thrombophilia Stroke (< 1 month) Elective arthroplasty Hip, pelvis, or leg fracture Acute spinal cord injury (< 1 month) <Alseha Avila - 06/13/18 14:23> Point Value = 1 Point Value = 2 Point Value = 3 Point Value = 5 Age 41-60 Minor surgery BMI > 25 kg/m2 Swollen legs Varicose veins or History of unexplained or recurrent spontaneous Oral contraceptives or hormone replacement Sepsis (< 1 month) Serious lung disease, including pneumonia (< 1 month) Abnormal pulmonary function Acute myocardial infarction Congestive heart failure (< 1 month) History of inflammatory bowel disease Medical patient at bed rest Age 61-74 Arthroscopic surgery Major open surgery (> 45 min) Laparoscopic surgery (> 45 min) Malignancy Confined to bed (> 72 hours) Immobilizing plaster cast Central venous access Age >= 75 History of VTE Family history of VTE Factor V Leiden Prothrombin [id number] Lupus anticoagulant Anticardiolipin antibodies Elevated serum homocysteine Heparin-induced thrombocytopenia Other congenital or acquired thrombophilia Stroke (< 1 month) Elective arthroplasty Hip, pelvis, or leg fracture Acute spinal cord injury (< 1 month) <Elyse Granado - 06/12/18 15:32> Prophylaxis Regimen: Total Risk Factor Score Risk Level Prophylaxis Regimen 0-1 Low Early ambulation 2 Moderate Order ONE of the following: *Sequential Compression Device (SCD) *Heparin 5000 units SQ BID 3-4 Higher Order ONE of the following medications: *Heparin 5000 units SQ TID *Enoxaparin/Lovenox 40 mg SQ daily (WT < 150 kg, CrCl > 30 mL/min) *Enoxaparin/Lovenox 30 mg SQ daily (WT < 150 kg, CrCl > 10-29 mL/min) *Enoxaparin/Lovenox 30 mg SQ BID (WT < 150 kg, CrCl > 30 mL/min) AND/OR *Sequential Compression Device (SCD) 5 or more Highest Order ONE of the following medications: *Heparin 5000 units SQ TID (Preferred with Epidurals) *Enoxaparin/Lovenox 40 mg SQ daily (WT < 150 kg, CrCl > 30 mL/min) *Enoxaparin/Lovenox 30 mg SQ daily (WT < 150 kg, CrCl > 10-29 mL/min) *Enoxaparin/Lovenox 30 mg SQ BID (WT < 150 kg, CrCl > 30 mL/min) AND *Sequential Compression Device (SCD) <Alesha Avila - 06/13/18 14:23> Total Risk Factor Score Risk Level Prophylaxis Regimen 0-1 Low Early ambulation 2 Moderate Order ONE of the following: *Sequential Compression Device (SCD) *Heparin 5000 units SQ BID 3-4 Higher Order ONE of the following medications: *Heparin 5000 units SQ TID *Enoxaparin/Lovenox 40 mg SQ daily (WT < 150 kg, CrCl > 30 mL/min) *Enoxaparin/Lovenox 30 mg SQ daily (WT < 150 kg, CrCl > 10-29 mL/min) *Enoxaparin/Lovenox 30 mg SQ BID (WT < 150 kg, CrCl > 30 mL/min) AND/OR *Sequential Compression Device (SCD) 5 or more Highest Order ONE of the following medications: *Heparin 5000 units SQ TID (Preferred with Epidurals) *Enoxaparin/Lovenox 40 mg SQ daily (WT < 150 kg, CrCl > 30 mL/min) *Enoxaparin/Lovenox 30 mg SQ daily (WT < 150 kg, CrCl > 10-29 mL/min) *Enoxaparin/Lovenox 30 mg SQ BID (WT < 150 kg, CrCl > 30 mL/min) AND *Sequential Compression Device (SCD) <Elyse Granado - 06/12/18 15:32> Assessment and Plan - Assessment (1) Dizziness Code(s): R42 - Dizziness and giddiness Status: Acute (2) Oxygen desaturation during sleep Code(s): G47.34 - Idiopathic sleep related nonobstructive alveolar hypoventilation Status: Acute (3) Abdominal pain Code(s): R10.9 - Unspecified abdominal pain Status: Acute (4) Hypertension Code(s): I10 - Essential (primary) hypertension Status: Acute (5) Diabetes mellitus Code(s): E11.9 - Type 2 diabetes mellitus without complications Status: Acute (6) Diabetic gastroparesis Code(s): E11.43 - Type 2 diabetes mellitus with diabetic autonomic (poly) neuropathy; K31.84 - Gastroparesis Status: Acute (7) Nutrition, metabolism, and development symptoms Code(s): R63.8 - Other symptoms and signs concerning food and fluid intake Status: Acute <Alesha Avila - 06/13/18 14:23> (1) Dizziness Code(s): R42 - Dizziness and giddiness Status: Acute Plan: Patient reports episode of extreme dizziness accompanied by nausea this morning unable to get out of bed. He has been slightly resolved at time of interview. Patient has a history of vertigo that was previously treated with medication ( she does not remember the name) she has not taken the medication since September. (2) Oxygen desaturation during sleep Code(s): G47.34 - Idiopathic sleep related nonobstructive alveolar hypoventilation Status: Acute Plan: Patient with 2 episodes of O2 desaturations to the low 60s while asleep in the ED. Patient has a history of snoring and orthopnea for the past 2 years. Continue to monitor O2 saturations Discharge patient with O2 tank until the study can be done (3) Abdominal pain Code(s): R10.9 - Unspecified abdominal pain Status: Acute Plan: Patient with complaint of right-sided abdominal and flank pain accompanied by nausea may possibly related to her gastroparesis. Patient for blood tinged sputum as she was trying to make herself throw up this morning due to her increased sxs of nausea. H/H stable CT abd/pelvis: Fatty liver. Radiopaque densities in the patient's rectum not present previously of uncertain etiology. This may be iron pills. (4) Hypertension Code(s): I10 - Essential (primary) hypertension Status: Acute Plan: Continue with blood pressure medication (5) Diabetes mellitus Code(s): E11.9 - Type 2 diabetes mellitus without complications Status: Acute Plan: Patient with history of diabetes. Accu-Cheks Low-dose siding scale insulin (6) Diabetic gastroparesis Code(s): E11.43 - Type 2 diabetes mellitus with diabetic autonomic (poly) neuropathy; K31.84 - Gastroparesis Status: Acute Plan: Patient abdominal pain may be a complication of her gastroparesis Continue with home medication Zofran for nausea as needed (7) Nutrition, metabolism, and development symptoms Code(s): R63.8 - Other symptoms and signs concerning food and fluid intake Status: Acute Plan: Fluids: Not indicated at this time Electrolytes: P as needed Nutrition diabetic diet DVT prophylaxis SCDs <Elyse Granado - 06/12/18 18:21> - Attending Attestation The exam, history, and the medical decision-making described in the above note were completed with the assistance of the resident physician. I reviewed and agree with the findings presented. I attest that I had a [id number] encounter with the patient on the same day, and personally performed and documented my assessment and findings in the medical record. she was seen in the ED on admission with Grabiel Laguna <Alesha Avila - 06/13/18 14:23> <Elyse Granado D - Last Filed: 06/12/18 18:21> (3) Abdominal pain Qualifiers: Abdominal location: right upper quadrant Qualified Code(s): R10.11 - Right upper quadrant pain (5) Diabetes mellitus Qualifiers: Diabetes mellitus type: type 2 <Alesha Avila - Last Filed: 06/13/18 14:23> (3) Abdominal pain Qualifiers: Abdominal location: right upper quadrant Qualified Code(s): R10.11 - Right upper quadrant pain (5) Diabetes mellitus Qualifiers: Diabetes mellitus type: type 2 <Elyse Granado - Last Filed: 06/12/18 18:21> (3) Abdominal pain Qualifiers: Abdominal location: right upper quadrant Qualified Code(s): R10.11 - Right upper quadrant pain (5) Diabetes mellitus Qualifiers: Diabetes mellitus type: type 2 <Alesha Avila M - Last Filed: 06/13/18 14:23> (3) Abdominal pain Qualifiers: Abdominal location: right upper quadrant Qualified Code(s): R10.11 - Right upper quadrant pain (5) Diabetes mellitus Qualifiers: Diabetes mellitus type: type 2
[2018-06-12] MEDS: amLODIPine 10 MG Tablet PO SCH (16:08)
[2018-06-12] MEDS ORDERED: Non-Formulary Drug (Metoclopramide Hcl [Metoclopramide Hcl] 5 MG) PO SCH (18:00)
[2018-06-12] MEDS: Metoclopramide 10 MG Tablet PO SCH (18:45)
[2018-06-12] MEDS: Insulin NovoLOG Aspart Correctional Sugar Inj SQ SCH ×2 (18:50→21:25)
[2018-06-13] MEDS: Timolol 0.5% Drops 5 ML Bottle EACH EYE SCH ×3 (00:14→21:27)
[2018-06-13 07:18] LABS: Hematocrit 40.5 % (35.0-46.0); Hemoglobin 13.6 gm/dL (11.6-15.3); Mean Corpuscular HGB Conc 33.6 % (32.0-36.0); Mean Corpuscular Hemoglobin 29.8 pg (27.0-34.0); Mean Corpuscular Volume 88.5 fL (80.0-100.0); Mean Platelet Volume 8.7 fL (7.0-11.0); Platelet Count 284 th/mm3 (150-450); Red Blood Count 4.57 mil/mm3 (4.00-5.30); Red Cell Distribution Width 13.4 % (11.6-17.2)
[2018-06-13 07:38] LABS: Calcium 9.1 mg/dL (8.5-10.1); Carbon Dioxide 30.8 meq/L (21.0-32.0); Potassium 4.1 meq/L (3.5-5.1)
--- NOTE | 2018-06-13 09:20 | P.HPFP ---
History of Present Illness Primary Care Physician: Judi Lopez MD Chief Complaint: dizziness History of Present Illness: Patient is a 48-year-old female with past medical history of diabetes complicated by gastroparesis, hypertension, and vertigo who presented to the ED with complaints of dizziness and nausea accompanied by Right sided abdominal pain. Patient reports that around 4 AM she was getting up to use the bathroom , she felt dizzy and laid in bed. She stated that she had a feeling like she was sinking. she reports a Right sided abdominal pain radiating to her right lower back. Denies any vomiting. She also reports pressure-like nonradiating midsternal chest pain brought on by deep breathing. Patient reports that when she lays flat she feels short of breath and usually sleeps propped with 3 pillows. Endorses generalized fatigue. Denies falling, fever, chills, LE swelling, diarrhea, dysuria and LOC. At home patient patient blood sugar was 126 and her blood pressure was 134/90 during this episode. Of note patient also has a history of panic attacks last panic attack occurred 6 months ago due to the passing of her mother. In the ED patient was noted to have 2 episodes of O2 desaturation to the low 60s when asleep. Her saturations returned back to 9697% when she was awakened. Based on her multiple problems including trying to vomit forcefully and spitting out a small quantity of blood plus the low O2 sats, she was recommended for admission. This am she states he dizziness is worse when she turns her head from side to side or otherwise moves her head when changing positions like standing up or sitting down. She also complained of continuing abdominal pain. Erythromycin was attempted to see if it would help her gastroparesis and it seemed to but she was still having pain and other problems. Per her oldest son who was in the room, she has seen GI in the past and has had multiple tests but no evaluations for at least 3 years and she keeps getting worse. she is almost exclusively lithuanian speaking so her interview was aided by her son and Dr Granado today. - Diagnosis (1) Dizziness (2) Oxygen desaturation during sleep (3) Abdominal pain (4) Hypertension (5) Diabetes mellitus (6) Diabetic gastroparesis (7) Nutrition, metabolism, and development symptoms Review of Systems see ROS from original h&P PMFSH - History History Provided By: Patient, Family Member - Medical History Medical History: Medical History (Last Reviewed 06/13/18 @ 08:04 by Mariama Tobias) Colon polyp Diabetes Diverticulosis Fibroid uterus Hx of hysterectomy Hypertension IBS (irritable bowel syndrome) - Surgical History Surgical History: Surgical History (Last Reviewed 06/13/18 @ 08:05 by Mariama Tobias) H/O eye surgery History of abdominoplasty History of cholecystectomy History of myomectomy - Tobacco History Second Hand Smoke Exposure: No Tobacco Use In Past 30 Days: No Smoking Status: Never smoker Tobacco Type: Cigarettes - Alcohol History How Often Do You Have a Drink Containing Alcohol: Never - Substance Use History Substance History: No History of Abuse - Travel History Recent Travel in the [place] Within the Last 8 Weeks: No Recent Travel Out of the Country Within the Last 8 Weeks: No - Immunization History Tetanus Immunization: >5 Years Hx Influenza Vaccine This Season: No Medications and Allergies Active Medications: Active Medications Acetaminophen (Tylenol) 650 mg PO Q6HR PRN PRN Reason: PAIN 1-10 AND/OR FEVER >101F Al Hydroxide/Mg Hydroxide (Milk Of Magnesia Liq) 30 ml PO Q12H PRN PRN Reason: Mild Constipation Amlodipine Besylate (Norvasc) 10 mg PO DAILY [facility] Last Admin: 06/12/18 16:08 Dose: 10 mg Bisacodyl (Dulcolax Supp) 10 mg RECTAL DAILY PRN PRN Reason: SEVERE CONSITIPATION Dextrose (D50w Vial) 50 ml IV.PUSH UNSCH PRN PRN Reason: PER HYPOGLYCEMIA PROTOCOL Glucagon (Glucagon Inj) 1 mg OTHER PRN PRN PRN Reason: for Hypoglycemia Protocol Insulin Aspart (Novolog Insulin Correctional Sugar Inj) 0 unit SQ ACHS [facility]; Protocol Last Admin: 06/12/18 21:25 Dose: Not Given Lactulose (Lactulose Liq) 30 ml PO DAILY PRN PRN Reason: SEVERE CONSITIPATION Metoclopramide HCl (Reglan) 5 mg PO TID [facility] Last Admin: 06/12/18 18:45 Dose: 5 mg Ondansetron HCl (Zofran Odt) 4 mg PO Q6H PRN PRN Reason: NAUSEA OR VOMITING Last Admin: 06/12/18 16:08 Dose: 4 mg Pantoprazole Sodium (Protonix) 20 mg PO DAILY [facility] Senna/Docusate Sodium (Kourtney-Colace) 1 tab PO BID PRN PRN Reason: SEVERE CONSTIPATION Sennosides (Senokot) 17.2 mg PO Q12H PRN PRN Reason: Moderate Constipation Sodium Chloride (Ns Flush) 2 ml IV.FLUSH PRN PRN PRN Reason: FLUSH AFTER USING IV ACCESS Temazepam (Restoril) 15 mg PO HS PRN PRN Reason: INSOMNIA Timolol Maleate (Timoptic 0.5% Drops) 1 drops EACH EYE BID MANISHA Last Admin: 06/13/18 00:14 Dose: Not Given Allergies Allergy/AdvReac Type Severity Reaction Status Date / Time penicillin G Allergy Intermediate RASH Verified 06/12/18 06:28 morphine AdvReac Severe Nausea/Vomi Verified 06/12/18 06:28 ting Home Medications Medication Instructions Recorded Confirmed Type amlodipine 10 mg PO DAILY 06/12/18 06/12/18 History ibuprofen [Motrin IB] 800 mg PO TID 06/12/18 06/12/18 History metformin 500 mg PO DAILY 06/12/18 06/12/18 History metoclopramide HCl 5 mg PO TID 06/12/18 06/12/18 History [id number] oil 1 cap PO DAILY 06/12/18 06/12/18 History omeprazole 20 mg PO DAILY 06/12/18 06/12/18 History ondansetron HCl 4 mg PO TID PRN 06/12/18 06/12/18 History polymyxin B sulf-trimethoprim 1 drp OPHTHALMIC (EYE) Q3H 06/12/18 06/12/18 History timolol maleate 1 drop EACH EYE BID 06/12/18 06/12/18 History Exam Vital signs: Vital Signs 06/12/18 09:35 06/12/18 09:40 06/12/18 09:42 Temperature Pulse Rate 91 H Respiratory Rate 16 Blood Pressure 144/72 H Pulse Oximetry 95 65 L 95 06/12/18 13:30 06/12/18 13:32 06/12/18 14:17 Temperature Pulse Rate 81 Respiratory Rate 20 Blood Pressure 154/97 H Pulse Oximetry 62 L 95 96 06/12/18 16:00 06/12/18 16:45 06/12/18 20:00 Temperature 98.3 F 97.7 F 97.9 F Pulse Rate 85 81 84 Respiratory Rate 20 20 18 Blood Pressure 159/65 H 135/74 138/75 Pulse Oximetry 93 L 94 L 06/12/18 23:55 06/13/18 00:00 06/13/18 04:00 Temperature 97.7 F 97.9 F Pulse Rate 88 84 68 Respiratory Rate 18 18 Blood Pressure 129/79 124/81 Pulse Oximetry 95 98 Intake & Output 06/12/18 06/13/18 06/13/18 18:59 06:59 18:59 Intake Total 240 / 240 Balance 240 / 240 Weight 114.4 kg 114.8 kg Intake: Oral 240 / 240 Other: # Voids 2 Weight On Admission 114.4 kg - Constitutional no acute distress, morbidly obese, cooperative - Routine HEENT Exam Head: Present: normocephalic, atraumatic. Absent: abrasion, laceration, hematoma, facial swelling Eye: Present: EOMI. Absent: conjunctival icterus, scleral injection, periorbital swelling, periorbital tenderness, nystagmus ENT: Present: mucous membranes moist, oropharynx clear. Absent: septal deviation - Routine Neck Exam Present: supple, full ROM. Absent: tracheal deviation, trauma - Routine Chest/Breast/Axilla Exam Chest wall: Absent: tenderness - Routine Respiratory Exam Present: CTA bilaterally. Absent: accessory muscle use, prolonged expiratory phase, rales, respiratory distress, rhonchi - Routine Cardiovascular Exam Present: RRR. Absent: murmur, gallop, rubs, tachycardia, irregular rhythm, irregularly irregular - Routine Abdominal Exam Present: soft, tenderness, surgical scars. Absent: distended, rebound, guarding , firm, rigid, hernia, wound, drain - Routine Extremities Exam Absent: cyanosis, clubbing, edema, extremity cold to touch - Routine Skin Exam Present: intact, dry. Absent: cyanosis, erythema, mottling, petechiae, urticaria, cracked, gangrene - Routine Neurological Exam Present: alert, moving all extremities, normal tone. Absent: sensory deficit, motor deficit, altered mental status Results - Labs Result diagrams: 06/13/18 06:02 06/13/18 06:02 Abnormal lab results 06/12/18 06/12/18 06/12/18 Range/Units 09:50 15:41 18:18 Estimated GFR (>89) mL/min POC Glucose 126 H (68-110) mg/dl Random Glucose (74-106) mg/dL Troponin I Less than 0.02 L (0.02-0.05) ng/mL Urine Protein 100 H (Neg-Trace) mg/dL Urine Occult Blood Small H (Negative) 06/12/18 06/13/18 06/13/18 Range/Units 19:52 06:02 08:35 Estimated GFR 86 L (>89) mL/min POC Glucose 178 H 145 H (68-110) mg/dl Random Glucose 122 H (74-106) mg/dL Troponin I (0.02-0.05) ng/mL Urine Protein (Neg-Trace) mg/dL Urine Occult Blood (Negative) Short CBC 06/13/18 Range/Units 06:02 WBC 8.0 (4.0-11.0) th/mm3 Hgb 13.6 (11.6-15.3) gm/dL Hct 40.5 (35.0-46.0) % Plt Count 284 (150-450) th/mm3 BMP 06/13/18 06:02 Sodium 142 Potassium 4.1 Chloride 103 Carbon Dioxide 30.8 BUN 12 Creatinine 0.72 Calcium 9.1 Cardiac Enzymes 06/12/18 Range/Units 15:41 Troponin I Less than 0.02 L (0.02-0.05) ng/mL Urine 06/12/18 Range/Units 09:50 Urine Color Colorless (Yellw/Straw) Urine Clarity Clear (Clear) Urine pH 7.0 (5.0-8.5) Ur Specific [place] 1.019 (1.002-1.035) Urine Protein 100 H (Neg-Trace) mg/dL Urine Glucose (UA) Negative (Negative) mg/dL Caprini VTE Risk Assessment Caprini VTE Risk Assessment: No/Low Risk (score <= 1) Caprini Risk Assessment Model: Point Value = 1 Point Value = 2 Point Value = 3 Point Value = 5 Age 41-60 Minor surgery BMI > 25 kg/m2 Swollen legs Varicose veins or History of unexplained or recurrent spontaneous Oral contraceptives or hormone replacement Sepsis (< 1 month) Serious lung disease, including pneumonia (< 1 month) Abnormal pulmonary function Acute myocardial infarction Congestive heart failure (< 1 month) History of inflammatory bowel disease Medical patient at bed rest Age 61-74 Arthroscopic surgery Major open surgery (> 45 min) Laparoscopic surgery (> 45 min) Malignancy Confined to bed (> 72 hours) Immobilizing plaster cast Central venous access Age >= 75 History of VTE Family history of VTE Factor V Leiden Prothrombin 40031D Lupus anticoagulant Anticardiolipin antibodies Elevated serum homocysteine Heparin-induced thrombocytopenia Other congenital or acquired thrombophilia Stroke (< 1 month) Elective arthroplasty Hip, pelvis, or leg fracture Acute spinal cord injury (< 1 month) Prophylaxis Regimen: Total Risk Factor Score Risk Level Prophylaxis Regimen 0-1 Low Early ambulation 2 Moderate Order ONE of the following: *Sequential Compression Device (SCD) *Heparin 5000 units SQ BID 3-4 Higher Order ONE of the following medications: *Heparin 5000 units SQ TID *Enoxaparin/Lovenox 40 mg SQ daily (WT < 150 kg, CrCl > 30 mL/min) *Enoxaparin/Lovenox 30 mg SQ daily (WT < 150 kg, CrCl > 10-29 mL/min) *Enoxaparin/Lovenox 30 mg SQ BID (WT < 150 kg, CrCl > 30 mL/min) AND/OR *Sequential Compression Device (SCD) 5 or more Highest Order ONE of the following medications: *Heparin 5000 units SQ TID (Preferred with Epidurals) *Enoxaparin/Lovenox 40 mg SQ daily (WT < 150 kg, CrCl > 30 mL/min) *Enoxaparin/Lovenox 30 mg SQ daily (WT < 150 kg, CrCl > 10-29 mL/min) *Enoxaparin/Lovenox 30 mg SQ BID (WT < 150 kg, CrCl > 30 mL/min) AND *Sequential Compression Device (SCD) Assessment and Plan - Assessment (1) Dizziness Code(s): R42 - Dizziness and giddiness Status: Acute Plan: Patient reports episode of extreme dizziness accompanied by nausea unable to get out of bed. Patient has a history of vertigo that was previously treated with medication ( she does not remember the name) she has not taken the medication since September. per history this is related to her inner ear as when she moves her head it is triggered and per her son it will "extinct itself" if she keeps still or continues on a straight path will see if she can have the Jesus maneuver done in the hospital. if not, the name of this was given to her son so that she can get this done as an outpt (2) Oxygen desaturation during sleep Code(s): G47.34 - Idiopathic sleep related nonobstructive alveolar hypoventilation Status: Acute Plan: Patient with 2 episodes of O2 desaturations to the low 60s while asleep in the ED. Patient has a history of snoring and orthopnea for the past 2 years. Continue to monitor O2 saturations Discharge patient with O2 tank until the study can be done she and her family know they need an official study to get a properly fitted mask at the right settings (3) Abdominal pain Code(s): R10.9 - Unspecified abdominal pain Status: Acute Plan: Patient with complaint of right-sided abdominal and flank pain accompanied by nausea may possibly related to her gastroparesis. Patient for blood tinged sputum as she was trying to make herself throw up this morning due to her increased sxs of nausea. H/H stable CT abd/pelvis: Fatty liver. Radiopaque densities in the patient's rectum not present previously of uncertain etiology. This may be iron pills. based on her getting worse and worse over time will consult GI especially as she had some blood (4) Hypertension Code(s): I10 - Essential (primary) hypertension Status: Acute Plan: Continue with blood pressure medication (5) Diabetes mellitus Code(s): E11.9 - Type 2 diabetes mellitus without complications Status: Acute Plan: Patient with history of diabetes. Accu-Cheks Low-dose siding scale insulin (6) Diabetic gastroparesis Code(s): E11.43 - Type 2 diabetes mellitus with diabetic autonomic (poly) neuropathy; K31.84 - Gastroparesis Status: Acute Plan: Patient abdominal pain may be a complication of her gastroparesis Continue with home medication Zofran for nausea as needed will try liquid erythromycin she may need to modify her diet (7) Nutrition, metabolism, and development symptoms Code(s): R63.8 - Other symptoms and signs concerning food and fluid intake Status: Acute Plan: Fluids: Not indicated at this time Electrolytes: replace as needed Nutrition diabetic diet DVT prophylaxis SCDs H&P: Quality - VTE Deep Vein Thrombosis/Pulmonary Embolism Present on Admission: No (3) Abdominal pain Qualifiers: Abdominal location: right upper quadrant Qualified Code(s): R10.11 - Right upper quadrant pain (4) Hypertension Qualifiers: Hypertension type: essential hypertension Qualified Code(s): I10 - Essential (primary) hypertension (5) Diabetes mellitus Qualifiers: Diabetes mellitus type: type 2 Diabetes mellitus complication status: with neurologic complications Diabetes mellitus complication detail: with unspecified neuropathy
[2018-06-13] MEDS: Metoclopramide 10 MG Tablet PO SCH ×3 (09:22→17:53)
[2018-06-13] MEDS: Pantoprazole Sodium 20 MG DR Tablet PO SCH (09:22)
[2018-06-13] MEDS: amLODIPine 10 MG Tablet PO SCH (09:22)
[2018-06-13] MEDS: Insulin NovoLOG Aspart Correctional Sugar Inj SQ SCH ×4 (09:27→21:09)
--- NOTE | 2018-06-13 14:54 | ECG ---
Date Performed: 06/12/2018 Time Performed: 15:37:40 PTAGE: 48 years EKG: Sinus rhythm NONSPECIFIC T-WAVE ABNORMALITY When compared to previous tracing, no significant change. Normal ECG PREVIOUS TRACING : 07/25/2016 13.08 DOCTOR: Jonathon Jimenez Interpretating Date/Time 06/13/2018 14:53:23
--- NOTE | 2018-06-13 17:25 | P.CONGI ---
History of Present Illness Consult date: 06/13/18 Chief complaint: DESATURATION W/SLEEP;DIABETES MELLITUS;GASTROPARES History of Present Illness: This is a 48-year-old female with past medical history of diabetes, gastroparesis, hypertension, and vertigo who presented to the ED with complaints of dizziness and nausea and Right sided abdominal pain. Son in the room helping with HPI due to language barrier. she reports a Right sided abdominal pain radiating to her right lower back and severe epigastric pain X 2 weeks. Denies any vomiting, hematemesis, melena, hematochezia, diarrhea or constipation. Admits to taking daily ibuprofen after hysterectomy in Oct. for at least 3 months but stopped. Denies alcohol intake. Denies GERD. Last EGD was 3 yrs ago by report. <Qiana Mccormick - Last Filed: 06/13/18 17:10> PMFSH - History History Provided By: Patient, Family Member - Medical History Medical History: Medical History (Last Reviewed 06/13/18 @ 08:04 by Mariama Tobias) Colon polyp Diabetes Diverticulosis Fibroid uterus Hx of hysterectomy Hypertension IBS (irritable bowel syndrome) - Surgical History Surgical History: Surgical History (Last Reviewed 06/13/18 @ 08:05 by Mariama Tobias) H/O eye surgery History of abdominoplasty History of cholecystectomy History of myomectomy - Tobacco History Second Hand Smoke Exposure: No Tobacco Use In Past 30 Days: No Smoking Status: Never smoker Tobacco Type: Cigarettes - Alcohol History How Often Do You Have a Drink Containing Alcohol: Never - Substance Use History Substance History: No History of Abuse - Travel History Recent Travel in the [place] Within the Last 8 Weeks: No Recent Travel Out of the Country Within the Last 8 Weeks: No - Immunization History Tetanus Immunization: >5 Years Hx Influenza Vaccine This Season: No <Qiana Mccormick - Last Filed: 06/13/18 17:10> - Medical History Medical History: Medical History (Last Reviewed 06/13/18 @ 08:04 by Mariama Tobias) Colon polyp Diabetes Diverticulosis Fibroid uterus Hx of hysterectomy Hypertension IBS (irritable bowel syndrome) - Surgical History Surgical History: Surgical History (Last Reviewed 06/13/18 @ 08:05 by Mariama Tobias) H/O eye surgery History of abdominoplasty History of cholecystectomy History of myomectomy <Andrew Gonzalez E - Last Filed: 06/13/18 18:06> Medications and Allergies Active Medications: Active Medications Acetaminophen (Tylenol) 650 mg PO Q6HR PRN PRN Reason: PAIN 1-10 AND/OR FEVER >101F Last Admin: 06/13/18 09:23 Dose: 650 mg Al Hydroxide/Mg Hydroxide (Milk Of Magnesia Liq) 30 ml PO Q12H PRN PRN Reason: Mild Constipation Amlodipine Besylate (Norvasc) 10 mg PO DAILY [facility] Last Admin: 06/13/18 09:22 Dose: 10 mg Bisacodyl (Dulcolax Supp) 10 mg RECTAL DAILY PRN PRN Reason: SEVERE CONSITIPATION Dextrose (D50w Vial) 50 ml IV.PUSH UNSCH PRN PRN Reason: PER HYPOGLYCEMIA PROTOCOL Erythromycin Ethylsuccinate (Ees 200 Mg/5 Ml Liq) 100 mg PO [facility] Glucagon (Glucagon Inj) 1 mg OTHER PRN PRN PRN Reason: for Hypoglycemia Protocol Insulin Aspart (Novolog Insulin Correctional Sugar Inj) 0 unit SQ [facility]; Protocol Last Admin: 06/13/18 16:37 Dose: Not Given Ketorolac Tromethamine (Toradol) 15 mg PO Q6HR PRN PRN Reason: pain scale 5 to 10 Lactulose (Lactulose Liq) 30 ml PO DAILY PRN PRN Reason: SEVERE CONSITIPATION Metoclopramide HCl (Reglan) 5 mg PO TID [facility] Last Admin: 06/13/18 16:38 Dose: 5 mg Ondansetron HCl (Zofran Odt) 4 mg PO Q6H PRN PRN Reason: NAUSEA OR VOMITING Last Admin: 06/12/18 16:08 Dose: 4 mg Pantoprazole Sodium (Protonix) 20 mg PO DAILY [facility] Last Admin: 06/13/18 09:22 Dose: 20 mg Senna/Docusate Sodium (Kourtney-Colace) 1 tab PO BID PRN PRN Reason: SEVERE CONSTIPATION Sennosides (Senokot) 17.2 mg PO Q12H PRN PRN Reason: Moderate Constipation Sodium Chloride (Ns Flush) 2 ml IV.FLUSH PRN PRN PRN Reason: FLUSH AFTER USING IV ACCESS Temazepam (Restoril) 15 mg PO HS PRN PRN Reason: INSOMNIA Timolol Maleate (Timoptic 0.5% Drops) 1 drops EACH EYE BID [facility] Last Admin: 06/13/18 16:39 Dose: Not Given <Qiana Mccormick - Last Filed: 06/13/18 17:10> Active Medications: Active Medications Acetaminophen (Tylenol) 650 mg PO Q6HR PRN PRN Reason: PAIN 1-10 AND/OR FEVER >101F Last Admin: 06/13/18 09:23 Dose: 650 mg Al Hydroxide/Mg Hydroxide (Milk Of Magnesia Liq) 30 ml PO Q12H PRN PRN Reason: Mild Constipation Amlodipine Besylate (Norvasc) 10 mg PO DAILY [facility] Last Admin: 06/13/18 09:22 Dose: 10 mg Bisacodyl (Dulcolax Supp) 10 mg RECTAL DAILY PRN PRN Reason: SEVERE CONSITIPATION Dextrose (D50w Vial) 50 ml IV.PUSH UNSCH PRN PRN Reason: PER HYPOGLYCEMIA PROTOCOL Erythromycin Ethylsuccinate (Ees 200 Mg/5 Ml Liq) 100 mg PO [facility] Last Admin: 06/13/18 17:53 Dose: 100 mg Glucagon (Glucagon Inj) 1 mg OTHER PRN PRN PRN Reason: for Hypoglycemia Protocol Insulin Aspart (Novolog Insulin Correctional Sugar Inj) 0 unit SQ [facility]; Protocol Last Admin: 06/13/18 17:53 Dose: Not Given Ketorolac Tromethamine (Toradol) 15 mg PO Q6HR PRN PRN Reason: pain scale 5 to 10 Lactulose (Lactulose Liq) 30 ml PO DAILY PRN PRN Reason: SEVERE CONSITIPATION Metoclopramide HCl (Reglan) 5 mg PO TID [facility] Last Admin: 06/13/18 17:53 Dose: 5 mg Ondansetron HCl (Zofran Odt) 4 mg PO Q6H PRN PRN Reason: NAUSEA OR VOMITING Last Admin: 06/12/18 16:08 Dose: 4 mg Pantoprazole Sodium (Protonix) 20 mg PO DAILY [facility] Last Admin: 06/13/18 09:22 Dose: 20 mg Senna/Docusate Sodium (Kourtney-Colace) 1 tab PO BID PRN PRN Reason: SEVERE CONSTIPATION Sennosides (Senokot) 17.2 mg PO Q12H PRN PRN Reason: Moderate Constipation Sodium Chloride (Ns Flush) 2 ml IV.FLUSH PRN PRN PRN Reason: FLUSH AFTER USING IV ACCESS Temazepam (Restoril) 15 mg PO HS PRN PRN Reason: INSOMNIA Timolol Maleate (Timoptic 0.5% Drops) 1 drops EACH EYE BID [facility] Last Admin: 06/13/18 16:39 Dose: Not Given <Andrew Gonzalez E - Last Filed: 06/13/18 18:06> Allergies Allergy/AdvReac Type Severity Reaction Status Date / Time penicillin G Allergy Intermediate RASH Verified 06/12/18 06:28 morphine AdvReac Severe Nausea/Vomi Verified 06/12/18 06:28 ting Home Medications Medication Instructions Recorded Confirmed Type amlodipine 10 mg PO DAILY 06/12/18 06/12/18 History ibuprofen [Motrin IB] 800 mg PO TID 06/12/18 06/12/18 History metformin 500 mg PO DAILY 06/12/18 06/12/18 History metoclopramide HCl 5 mg PO TID 06/12/18 06/12/18 History [id number] oil 1 cap PO DAILY 06/12/18 06/12/18 History omeprazole 20 mg PO DAILY 06/12/18 06/12/18 History ondansetron HCl 4 mg PO TID PRN 06/12/18 06/12/18 History polymyxin B sulf-trimethoprim 1 drp OPHTHALMIC (EYE) Q3H 06/12/18 06/12/18 History timolol maleate 1 drop EACH EYE BID 06/12/18 06/12/18 History Exam Vital signs: Vital Signs 06/12/18 20:00 06/12/18 23:55 06/13/18 00:00 Temperature 97.9 F 97.7 F Pulse Rate 84 88 84 Respiratory Rate 18 18 Blood Pressure 138/75 129/79 Pulse Oximetry 94 L 95 06/13/18 04:00 06/13/18 08:00 06/13/18 12:00 Temperature 97.9 F 97.4 F L 97.6 F Pulse Rate 68 70 73 Respiratory Rate 18 20 20 Blood Pressure 124/81 144/67 H 140/66 Pulse Oximetry 98 98 98 06/13/18 16:00 Temperature 97.2 F L Pulse Rate 75 Respiratory Rate 20 Blood Pressure 148/75 H Pulse Oximetry 98 Intake & Output 07/06/13/18 06/13/18 18:59 06:59 18:59 Intake Total 240 / 240 360 / 360 Output Total 2 / 2 Balance 240 / 240 358 / 358 Weight 114.4 kg 114.8 kg Intake: Oral 240 / 240 360 / 360 Output: Urine 2 / 2 Other: # Voids 2 Weight On Admission 114.4 kg - Constitutional no acute distress - Routine HEENT Exam Head: Present: normocephalic. Absent: atraumatic - Routine Neck Exam Present: supple - Routine Respiratory Exam Present: CTA bilaterally - Routine Cardiovascular Exam Present: RRR - Routine Abdominal Exam Present: soft, normoactive bowel sounds, tenderness - Routine Extremities Exam Absent: edema - Routine Skin Exam Present: intact, dry. Absent: jaundice - Routine Neurological Exam Present: alert, oriented X3 <Qiana Mccormick - Last Filed: 06/13/18 17:10> Vital signs: Vital Signs 06/12/18 20:00 06/12/18 23:55 06/13/18 00:00 Temperature 97.9 F 97.7 F Pulse Rate 84 88 84 Respiratory Rate 18 18 Blood Pressure 138/75 129/79 Pulse Oximetry 94 L 95 06/13/18 04:00 06/13/18 08:00 06/13/18 12:00 Temperature 97.9 F 97.4 F L 97.6 F Pulse Rate 68 70 73 Respiratory Rate 18 20 20 Blood Pressure 124/81 144/67 H 140/66 Pulse Oximetry 98 98 98 06/13/18 16:00 Temperature 97.2 F L Pulse Rate 75 Respiratory Rate 20 Blood Pressure 148/75 H Pulse Oximetry 98 Intake & Output 06/12/18 06/13/18 06/13/18 18:59 06:59 18:59 Intake Total 240 / 240 360 / 360 Output Total 2 / 2 Balance 240 / 240 358 / 358 Weight 114.4 kg 114.8 kg Intake: Oral 240 / 240 360 / 360 Output: Urine 2 / 2 Other: # Voids 2 Weight On Admission 114.4 kg <Andrew Gonzalez - Last Filed: 06/13/18 18:06> Results - Labs CBC & Chem 7: 06/13/18 06:02 06/13/18 06:02 Labs: Laboratory Results - last 24 hr 06/12/18 06/12/18 06/13/18 18:18 19:52 06:02 WBC 8.0 RBC 4.57 Hgb 13.6 Hct 40.5 MCV 88.5 MCH 29.8 MCHC 33.6 RDW 13.4 Plt Count 284 MPV 8.7 Sodium Potassium Chloride Carbon Dioxide Anion Gap BUN Creatinine Estimated GFR POC Glucose 126 H 178 H Random Glucose Calcium 06/13/18 06/13/18 06/13/18 06:02 08:35 13:13 WBC RBC Hgb Hct MCV MCH MCHC RDW Plt Count MPV Sodium 142 Potassium 4.1 Chloride 103 Carbon Dioxide 30.8 Anion Gap 8 BUN 12 Creatinine 0.72 Estimated GFR 86 L POC Glucose 145 H 130 H Random Glucose 122 H Calcium 9.1 <Qiana Mccormick - Last Filed: 06/13/18 17:10> - Labs CBC & Chem 7: 06/13/18 06:02 06/13/18 06:02 Labs: Laboratory Results - last 24 hr 06/12/18 06/12/18 06/13/18 18:18 19:52 06:02 WBC 8.0 RBC 4.57 Hgb 13.6 Hct 40.5 MCV 88.5 MCH 29.8 MCHC 33.6 RDW 13.4 Plt Count 284 MPV 8.7 Sodium Potassium Chloride Carbon Dioxide Anion Gap BUN Creatinine Estimated GFR POC Glucose 126 H 178 H Random Glucose Calcium 06/13/18 06/13/18 06/13/18 06:02 08:35 13:13 WBC RBC Hgb Hct MCV MCH MCHC RDW Plt Count MPV Sodium 142 Potassium 4.1 Chloride 103 Carbon Dioxide 30.8 Anion Gap 8 BUN 12 Creatinine 0.72 Estimated GFR 86 L POC Glucose 145 H 130 H Random Glucose 122 H Calcium 9.1 <Andrew Gonzalez - Last Filed: 06/13/18 18:06> Assessment and Plan - Plan - Abdominal pain- she reports a Right sided abdominal pain radiating to her right lower back and severe epigastric pain X [address] on 06/12/18 showed fatty liver, radiopaque densities in the patient's rectum not present previously of uncertain etiology CBC , CMP unremarkable, just slight elevation in ALT, lipase wnl Denies any vomiting, hematemesis, melena, hematochezia, diarrhea or constipation. Admits to taking daily ibuprofen after hysterectomy in Dec. for at least 3 months but stopped. Denies alcohol intake. Denies GERD. Last EGD was 3 yrs ago by report. - Hx of gastroparesis- not on meds for this - Hx of diabetes, hypertension, and vertigo per attending Plan: - [facility] - Back X-ray, possible musculoskeletal origin - EGD on Friday if pt still here to R/O PUD, (+) for NSAIDs use - Supportive care - Pt seen and examined by Dr. Gonzalez and myself and this note is written on his behalf. <Qiana Mccormick - Last Filed: 06/13/18 17:10> - Attending Attestation Patient seen and examined Agree with above Continue with current supportive care Monitor labs We will obtain back x-rays my feeling is that patient has musculoskeletal pains We will also proceed with an EGD on Friday to further evaluate the epigastric pain Patient was educated on precautionary measures for bloating and IBS <Andrew Gonzalez - Last Filed: 06/13/18 18:06>
[2018-06-13] MEDS: Erythromycin Ethylsuccinate Susp 200 MG/5 ML 100 ML Bottle PO SCH (17:53)
[2018-06-13] MEDS ORDERED: Ketorolac 10 MG Tablet PO PRN (18:00)
--- NOTE | 2018-06-13 21:33 | XR ---
EXAM DATE: 06/13/2018 9:31 PM EDT AGE/SEX: 48 years / Female INDICATIONS: Back pain. No known injury. CLINICAL DATA: This is the patient's initial encounter. Patient reports that signs and symptoms have been present for 4 - 6 days and indicates a pain score of 7/10. MEDICAL/SURGICAL HISTORY: None. None. COMPARISON: No prior exams available for comparison. FINDINGS: The vertebral bodies are in normal alignment without evidence of compression deformity. Minimal degen erative changes noted with slight anterior spurring. Overlying electrocardiogram leads are present. T he patient is noted to be status post cholecystectomy with surgical clips in the right upper abdomen. Bone density is normal for age. Soft tissues are grossly intact. CONCLUSION: Minimal degenerative change. Electronically signed by: Ascencion Collazo MD 06/13/2018 9:32 PM EDT
[2018-06-14] MEDS: Pantoprazole Sodium 20 MG DR Tablet PO SCH (08:10)
[2018-06-14] MEDS: amLODIPine 10 MG Tablet PO SCH (08:10)
[2018-06-14] MEDS: Metoclopramide 10 MG Tablet PO SCH ×2 (08:10→12:39)
[2018-06-14] MEDS: Erythromycin Ethylsuccinate Susp 200 MG/5 ML 100 ML Bottle PO SCH ×2 (08:13→12:40)
[2018-06-14] MEDS: Insulin NovoLOG Aspart Correctional Sugar Inj SQ SCH ×3 (08:13→21:45)
--- NOTE | 2018-06-14 10:14 | P.PNGI ---
Subjective Interval history: Interpretation services used for this encounter Pt reports continued abdominal pain, states mostly around her breasts, worse when sitting up in the chair. Pain is constant. Also complaining of nausea but denies any emesis. States abdominal bloating worse after meals for multiple years. Had BM yesterday, states normal. <Freda Lazaro - Last Filed: 06/14/18 10:09> Physical Exam Vital signs: Vital Signs 06/13/18 12:00 06/13/18 16:00 06/13/18 20:00 Temperature 97.6 F 97.2 F L 97.7 F Pulse Rate 73 75 79 Respiratory Rate 20 20 17 Blood Pressure 140/66 148/75 H 138/87 Pulse Oximetry 98 98 99 06/14/18 00:00 06/14/18 04:00 06/14/18 08:00 Temperature 97.9 F 98.8 F 97.6 F Pulse Rate 85 77 72 Respiratory Rate 18 19 20 Blood Pressure 137/77 140/82 121/74 Pulse Oximetry 98 98 96 Intake & Output 06/13/18 06/14/18 06/14/18 18:59 06:59 18:59 Intake Total 360 / 360 420 / 420 Output Total 2 / 2 Balance 358 / 358 420 / 420 Weight 113.6 kg Intake: Oral 360 / 360 420 / 420 Output: Urine 2 / 2 Other: # Voids 3 - Constitutional no acute distress - Routine HEENT Exam Head: Present: normocephalic, atraumatic - Routine Respiratory Exam Absent: accessory muscle use - Routine Cardiovascular Exam Present: RRR - Routine Abdominal Exam Present: soft, normoactive bowel sounds. Absent: tenderness, distended - Routine Skin Exam Present: dry, warm - Routine Neurological Exam Present: alert, oriented X3 <Freda Lazaro - Last Filed: 06/14/18 10:09> Vital signs: Vital Signs 06/13/18 16:00 06/13/18 20:00 06/14/18 00:00 Temperature 97.2 F L 97.7 F 97.9 F Pulse Rate 75 79 85 Respiratory Rate 20 17 18 Blood Pressure 148/75 H 138/87 137/77 Pulse Oximetry 98 99 98 06/14/18 04:00 06/14/18 08:00 06/14/18 08:50 Temperature 98.8 F 97.6 F Pulse Rate 77 72 Respiratory Rate 19 20 Blood Pressure 140/82 121/74 Pulse Oximetry 98 96 98 Intake & Output 06/13/18 06/14/18 06/14/18 18:59 06:59 18:59 Intake Total 360 / 360 420 / 420 Output Total 2 / 2 Balance 358 / 358 420 / 420 Weight 113.6 kg Intake: Oral 360 / 360 420 / 420 Output: Urine 2 / 2 Other: # Voids 3 <Andrew Gonzalez - Last Filed: 06/14/18 12:48> Results - Labs CBC & Chem 7: 06/13/18 06:02 06/13/18 06:02 Laboratory Results - last 24 hr 06/13/18 06/13/18 06/13/18 13:13 17:52 19:50 POC Glucose 130 H 148 H 172 H - Imaging Impressions Thoracic Spine X-Ray 06/13/18 00:00 CONCLUSION: Minimal degenerative change. <Freda Lazaro - Last Filed: 06/14/18 10:09> - Labs CBC & Chem 7: 06/13/18 06:02 06/13/18 06:02 Laboratory Results - last 24 hr 06/13/18 06/13/18 06/13/18 13:13 17:52 19:50 POC Glucose 130 H 148 H 172 H 06/14/18 08:09 POC Glucose 115 H - Imaging Impressions Thoracic Spine X-Ray 06/13/18 00:00 CONCLUSION: Minimal degenerative change. <Andrew Gonzalez E - Last Filed: 06/14/18 12:48> Assessment and Plan - Plan - Abdominal pain- she reports a Right sided abdominal pain radiating to her right lower back and severe epigastric pain X [address] on 06/12/18 showed fatty liver, radiopaque densities in the patient's rectum not present previously of uncertain etiology CBC , CMP unremarkable, just slight elevation in ALT, lipase wnl Denies any vomiting, hematemesis, melena, hematochezia, diarrhea or constipation. Admits to taking daily ibuprofen after hysterectomy in Oct. for at least 3 months but stopped. Denies alcohol intake. Denies GERD. Last EGD was 3 yrs ago by report. - Hx of gastroparesis- not on meds for this - Hx of diabetes, hypertension, and vertigo per attending (06/14) Pt complaining of pain in her upper abdomen and around the underside of her breasts, pain is constant, states worse when she is sitting in the chair. Also notes abdominal bloating worse after meals. Reports nausea, denies emesis. Noted to be possibly secondary to musculoskeletal causes, XR thoracic spire -- > Minimal degenerative changes Interpretation services used for this visit Plan: - EGD tomorrow - Obtain consent - NPO after MN - Reglan - BGL control per attending - Further recommendations based on EGD findings and clinical course Pt has been seen and examined by myself and Dr. Gonzalez and this note is written on his behalf <Freda Lazaro - Last Filed: 06/14/18 10:09> - Attending Attestation Patient seen and examined Agree with above Continue with current supportive care Monitor labs We will also order lumbar x-rays EGD tomorrow <Andrew Gonzalez - Last Filed: 06/14/18 12:48>
--- NOTE | 2018-06-14 10:21 | P.PNFP ---
Subjective Interval history: Patient was seen at bedside this morning. There were no acute events overnight. Patient reports feeling better today as compared to yesterday. Patient reports that her shortness of breath has improved. Patient does report however feeling some pain in her upper right quadrant in spite of prior cholecystectomy. Patient also reported some pain underneath her right breast. It was discussed with the patient her complaint of vertigo and how the Jesus maneuver may give her some relief. It was also discussed with the patient tomorrow she will be undergoing an EGD. Patient has had previous EGD/ colonoscopy's in the past and knows what to expect. Patient denies any subjective fevers, chills, shortness of breath, chest pain, nausea, or vomiting. All questions were answered to the patient's satisfaction. <Pascual Olivares - 06/14/18 13:48> Results - Labs Result diagrams: 06/13/18 06:02 06/13/18 06:02 <Alesha Avila - 06/18/18 14:22> Abnormal lab results 06/13/18 06/13/18 06/13/18 Range/Units 13:13 17:52 19:50 POC Glucose 130 H 148 H 172 H (68-110) mg/dl <Pascual Olivares 06/14/18 10:21> - Imaging Impressions Thoracic Spine X-Ray 06/13/18 00:00 CONCLUSION: Minimal degenerative change. <Pascual Olivares 06/14/18 10:21> Physical Exam Vital signs: Vital Signs 06/13/18 12:00 06/13/18 16:00 06/13/18 20:00 Temperature 97.6 F 97.2 F L 97.7 F Pulse Rate 73 75 79 Respiratory Rate 20 20 17 Blood Pressure 140/66 148/75 H 138/87 Pulse Oximetry 98 98 99 06/14/18 00:00 06/14/18 04:00 06/14/18 08:00 Temperature 97.9 F 98.8 F 97.6 F Pulse Rate 85 77 72 Respiratory Rate 18 19 20 Blood Pressure 137/77 140/82 121/74 Pulse Oximetry 98 98 96 06/14/18 08:50 Temperature Pulse Rate Respiratory Rate Blood Pressure Pulse Oximetry 98 Intake & Output 07/21/18 07/22/18 07/22/18 18:59 06:59 18:59 Intake Total 360 / 360 420 / 420 Output Total 2 / 2 Balance 358 / 358 420 / 420 Weight 113.6 kg Intake: Oral 360 / 360 420 / 420 Output: Urine 2 / 2 Other: # Voids 3 <Pascual Olivares 06/14/18 10:21> - Constitutional no acute distress, morbidly obese <Pascual Olivares 06/14/18 13:48> - Routine HEENT Exam Head: Present: normocephalic, atraumatic <Pascual Olivares 06/14/18 13:48> Eye: Present: PERRL <Pascual Olivares 06/14/18 13:48> ENT: Present: mucous membranes moist <Pascual Olivares 06/14/18 13:48> - Routine Respiratory Exam Present: CTA bilaterally. Absent: accessory muscle use, decreased breath sounds , rhonchi, stridor, wheezes, crackles, distant breath sounds, diminished air movement <Pascual Olivares 06/14/18 13:48> Comments: Some shortness of breath was observed upon activity, specifically upon standing. Patient satting 98% this morning on 2 L of nasal cannula. <Pascual Olivares 06/14/18 13:48> - Routine Cardiovascular Exam Present: RRR, S1, S2. Absent: murmur, gallop, rubs <Pascual Olivares 06/14/18 13:48> - Routine Abdominal Exam Present: soft, normoactive bowel sounds. Absent: distended <Pascual Olivares 06/14/18 13:48> Comments: Abdomen obese with previous surgical scars from laparoscopic cholecystectomy. There was no pain upon palpation. Abdomen obese but not firm. No suprapubic tenderness. <Pascual Olivares 06/14/18 13:48> - Routine Skin Exam Present: intact. Absent: cyanosis, erythema <Pascual Olivares 06/14/18 13:48> - Routine Neurological Exam Present: alert, oriented X3, sensory deficit, motor deficit, moving all extremities, vision grossly intact, hearing grossly intact, normal speech. Absent: altered mental status, facial asymmetry <Pascual Olivares 06/14/18 13: 48> - Detailed Neurological Exam: Coma Scale Eye Opening: Spontaneous <Pascual Olivares - 06/14/18 13:48> Verbal Response: Oriented <Pascual Olivares 06/14/18 13:48> Motor Response: Obey commands <Pascual Olivares 06/14/18 13:48> [place] Coma Scale Total: 15 <Pascual Olivares 06/14/18 13:48> - Routine Psychiatric Exam Present: normal affect, normal thought process, cooperative, good insight, good judgment. Absent: agitated, paranoid <Pascual Olivares 06/14/18 13:48> Assessment and Plan - Assessment (1) Dizziness Code(s): R42 - Dizziness and giddiness Status: Acute (2) Oxygen desaturation during sleep Code(s): G47.34 - Idiopathic sleep related nonobstructive alveolar hypoventilation Status: Acute (3) Abdominal pain Code(s): R10.9 - Unspecified abdominal pain Status: Acute (4) Hypertension Code(s): I10 - Essential (primary) hypertension Status: Acute (5) Diabetes mellitus Code(s): E11.9 - Type 2 diabetes mellitus without complications Status: Acute (6) Diabetic gastroparesis Code(s): E11.43 - Type 2 diabetes mellitus with diabetic autonomic (poly) neuropathy; K31.84 - Gastroparesis Status: Acute (7) Nutrition, metabolism, and development symptoms Code(s): R63.8 - Other symptoms and signs concerning food and fluid intake Status: Acute <Alesha Avila - 06/18/18 14:22> (1) Dizziness Code(s): R42 - Dizziness and giddiness Status: Acute Plan: Patient reports episode of extreme dizziness accompanied by nausea unable to get out of bed. Patient has a history of vertigo that was previously treated with medication (she does not remember the name) she has not taken the medication since September. Per history this is related to her inner ear as when she moves her head it is triggered and per her son it will "extinct itself" if she keeps still or continues on a straight path will see if she can have the Jesus maneuver done in the hospital. if not, the name of this was given to her son so that she can get this done as an outpatient. According to patient Jesus maneuver was attempted last night by physical therapy was unable to complete due to increasing dizziness during of the attempt. -Reattempt Jesus maneuver by physical therapy this afternoon. -Reassess in the morning. (2) Oxygen desaturation during sleep Code(s): G47.34 - Idiopathic sleep related nonobstructive alveolar hypoventilation Status: Acute Plan: Patient with 2 episodes of O2 desaturations to the low 60s while asleep in the ED. Patient has a history of snoring and orthopnea for the past 2 years. This patient is a never smoker. This morning patient was satting around 98% on 2 L of nasal cannula. She does experience of shortness of breath with activity specifically standing and ambulating. Not associated with any chest pain or changes in vision. - Continue to monitor O2 saturations - Discharge patient with O2 tank until the study can be done she and her family know they need an official study to get a properly fitted mask at the right settings (3) Abdominal pain Code(s): R10.9 - Unspecified abdominal pain Status: Acute Plan: Patient with complaint of right-sided abdominal and flank pain accompanied by nausea may possibly related to her gastroparesis. Patient for blood tinged sputum as she was trying to make herself throw up this morning due to her increased sxs of nausea. CT abd/pelvis showed fatty liver. Radiopaque densities in the patient's rectum not present previously of uncertain etiology, possibly iron pills. While inpatient the patient was put on erythromycin to help with her gastroparesis. Patient reports having several bowel movements yesterday. Patient continues to experience right upper quadrant pain, in spite of her prior cholecystectomy. Patient was seen by GI who recommends endoscopy tomorrow, Reglan, n.p.o. after midnight, and further recommendations will be based on EGD findings and clinical course. H/H currently stable at 13.6/40.5 yesterday. -EGD tomorrow -Follow GI recommendations (4) Hypertension Code(s): I10 - Essential (primary) hypertension Status: Acute Plan: Continue with blood pressure medication (5) Diabetes mellitus Code(s): E11.9 - Type 2 diabetes mellitus without complications Status: Acute Plan: Patient with history of diabetes. Patient normally on metformin at home. - Accu-Cheks - Low-dose siding scale insulin (6) Diabetic gastroparesis Code(s): E11.43 - Type 2 diabetes mellitus with diabetic autonomic (poly) neuropathy; K31.84 - Gastroparesis Status: Acute Plan: Patient abdominal pain may be a complication of her gastroparesis. Continue with home medication. -Continue erythromycin -Zofran for nausea as needed (7) Nutrition, metabolism, and development symptoms Code(s): R63.8 - Other symptoms and signs concerning food and fluid intake Status: Acute Plan: Fluids: Not indicated at this time Electrolytes: replace as needed Nutrition diabetic diet DVT prophylaxis SCDs <Pascual Olivares - 06/14/18 13:20> - Attending Attestation The exam, history, and the medical decision-making described in the above note were completed with the assistance of the resident physician. I reviewed and agree with the findings presented. I attest that I had a [id number] encounter with the patient on the same day, and personally performed and documented my assessment and findings in the medical record. she should be able to go home after endoscopy. she seems to be improved with erythromycin for the gastroparesis. she and her family know she needs a sleep study <Alesha Avila M - 06/18/18 14:22> <Pascual Olivares O - Last Filed: 06/14/18 13:20> (3) Abdominal pain Qualifiers: Abdominal location: right upper quadrant Qualified Code(s): R10.11 - Right upper quadrant pain (4) Hypertension Qualifiers: Hypertension type: essential hypertension Qualified Code(s): I10 - Essential (primary) hypertension (5) Diabetes mellitus Qualifiers: Diabetes mellitus type: type 2 Diabetes mellitus complication status: with neurologic complications Diabetes mellitus complication detail: with unspecified neuropathy <Alesha Avila - Last Filed: 06/18/18 14:22> (3) Abdominal pain Qualifiers: Abdominal location: right upper quadrant Qualified Code(s): R10.11 - Right upper quadrant pain (4) Hypertension Qualifiers: Hypertension type: essential hypertension Qualified Code(s): I10 - Essential (primary) hypertension (5) Diabetes mellitus Qualifiers: Diabetes mellitus type: type 2 Diabetes mellitus complication status: with neurologic complications Diabetes mellitus complication detail: with unspecified neuropathy <Pascual Olivares O - Last Filed: 06/14/18 13:20> (3) Abdominal pain Qualifiers: Abdominal location: right upper quadrant Qualified Code(s): R10.11 - Right upper quadrant pain (4) Hypertension Qualifiers: Hypertension type: essential hypertension Qualified Code(s): I10 - Essential (primary) hypertension (5) Diabetes mellitus Qualifiers: Diabetes mellitus type: type 2 Diabetes mellitus complication status: with neurologic complications Diabetes mellitus complication detail: with unspecified neuropathy <Alesha Avila M - Last Filed: 06/18/18 14:22> (3) Abdominal pain Qualifiers: Abdominal location: right upper quadrant Qualified Code(s): R10.11 - Right upper quadrant pain (4) Hypertension Qualifiers: Hypertension type: essential hypertension Qualified Code(s): I10 - Essential (primary) hypertension (5) Diabetes mellitus Qualifiers: Diabetes mellitus type: type 2 Diabetes mellitus complication status: with neurologic complications Diabetes mellitus complication detail: with unspecified neuropathy
[2018-06-14] MEDS: Timolol 0.5% Drops 5 ML Bottle EACH EYE SCH ×2 (12:40→21:38)
--- NOTE | 2018-06-14 16:06 | XR ---
EXAM DATE: 06/14/2018 3:12 PM EDT AGE/SEX: 48 years / Female INDICATIONS: Abdominal and lower back pain. CLINICAL DATA: This is the patient's initial encounter. Patient reports that signs and symptoms have been present for > 1 year and indicates a pain score of 8/10. MEDICAL/SURGICAL HISTORY: None. None. [place] [facility] [place] 3V[place] 06/13/2018. . FINDINGS: Mild to moderate degenerative disc disease. No acute fracture or spondylolisthesis. No bony destructi ve changes. CONCLUSION: Mild to moderate degenerative disc disease. No acute findings. Electronically signed by: Mp Khoury MD 06/14/2018 4:05 PM EDT
[2018-06-15] MEDS ORDERED: Metoprolol Tartrate 25 MG Tablet PO SCH (03:45)
[2018-06-15] MEDS ORDERED: Chlorhexidine Gluconate 2% 1 Pack (2 Cloths) TOPICAL SCH (03:45)
[2018-06-15] MEDS ORDERED: Sodium Chlor 0.9% Inj 500 ML IV.SIG SCH (04:00)
[2018-06-15] MEDS: Insulin NovoLOG Aspart Correctional Sugar Inj SQ SCH ×3 (08:56→18:30)
[2018-06-15] MEDS: Metoclopramide 10 MG Tablet PO SCH ×2 (08:56→12:56)
[2018-06-15] MEDS: Erythromycin Ethylsuccinate Susp 200 MG/5 ML 100 ML Bottle PO SCH ×2 (08:56→14:11)
[2018-06-15] MEDS: Timolol 0.5% Drops 5 ML Bottle EACH EYE SCH (08:58)
[2018-06-15] MEDS: amLODIPine 10 MG Tablet PO SCH (08:58)
[2018-06-15] MEDS: Pantoprazole Sodium 20 MG DR Tablet PO SCH (08:58)
--- NOTE | 2018-06-15 10:56 | P.PNGI ---
Subjective Interval history: 48-year-old lady who came with nausea abdominal discomfort and pain, workups negative she had normal CT scan except fatty liver, some degenerative changes on the spinal x-ray, her symptoms subsided a little bit but still not resolved Physical Exam Vital signs: Vital Signs 06/14/18 12:00 06/14/18 16:00 06/14/18 17:29 Temperature 97.7 F 97.3 F L Pulse Rate 74 90 Respiratory Rate 20 20 Blood Pressure 148/65 H 127/78 Pulse Oximetry 97 95 95 06/14/18 20:00 06/15/18 00:00 06/15/18 04:00 Temperature 97.6 F 97.9 F 97.3 F L Pulse Rate 90 72 62 Respiratory Rate 18 17 17 Blood Pressure 150/88 H 144/81 H 148/97 H Pulse Oximetry 96 98 96 Intake & Output 06/14/18 06/15/18 06/15/18 18:59 06:59 18:59 Intake Total 360 / 360 240 / 240 Output Total 3 / 3 Balance 357 / 357 240 / 240 Weight 113.5 kg Intake: Oral 360 / 360 240 / 240 Output: Urine 3 / 3 Other: # Voids 2 Date of Last Bowel Movement 06/14/18 # Bowel Movements 1 - Constitutional no acute distress - Routine HEENT Exam Head: Present: normocephalic, atraumatic (Obese) - Routine Abdominal Exam Present: soft Comments: Obese, positive bowel sounds, mild diffuse tenderness in the upper abdomen Results - Labs CBC & Chem 7: 06/13/18 06:02 06/13/18 06:02 Laboratory Results - last 24 hr 06/14/18 06/14/18 06/14/18 08:09 12:37 18:06 POC Glucose 115 H 120 H 111 H 06/14/18 06/15/18 19:50 06:52 POC Glucose 175 H 122 H - Imaging Impressions Lumbar Spine X-Ray 06/14/18 00:00 CONCLUSION: Mild to moderate degenerative disc disease. No acute findings. Assessment and Plan - Plan Patient is a 48-year-old lady who came with abdominal pain nausea, patient known to have diabetes, she has fatty liver on CT scan otherwise normal, she had lap yolanda in the past An upper endoscopy showed some redness in the body of the stomach otherwise normal biopsy was performed, most likely this patient has gastroparesis because of diabetes so this could be the reason for her symptom or gastroenteritis Recommend starting diabetic diet advance slowly Diabetes control Weight loss Gastric emptying study to confirm possible diagnosis of gastroparesis this can be done as an outpatient or in 2 days
--- NOTE | 2018-06-15 11:02 | GIPROC ---
[facility] [address] [facility]. [facility], [address] EGD PROCEDURE REPORT EXAM DATE: 06/15/2018 PATIENT NAME: Julienne Tobias I MR #: [id number] BIRTHDATE: 1970 ATTENDING: Maribel Truong MD ORDER #: [id number] BALL SORTER: Alan Bravo Jones, Julie, and Maritza Sarkar STATUS: inpatient INDICATIONS: The patient is a 48 yr old female here for an EGD due to epigastric abdominal pain and nausea PROCEDURE PERFORMED: EGD w/ biopsy MEDICATIONS: None and Per Anesthesia. TOPICAL ANESTHETIC: none CONSENT: The patient understands the risks and benefits of the procedure and understands that these risks include, but are not limited to: sedation, allergic reaction, infection, perforation and/or bleeding. Alternative means of evaluation and treatment include, among others: physical exam, x-rays, and/or surgical intervention. The patient elects to proceed with this endoscopic procedure. medical equipment was checked for proper function. Hand hygiene and appropriate measures for infection prevention was taken. After the risks, benefits and alternatives of the procedure were thoroughly explained, Informed consent was verified, confirmed and timeout was successfully executed by the treatment team. The patient was anesthetized with topical anesthesia and the [id number] (Pedi C) endoscope was introduced through the mouth and advanced to the second portion of the duodenum. Retroflexed views revealed no abnormalities The gastroscope was then slowly withdrawn and removed. Minimal redness in the body of the stomach biopsy to rule out H. pylori otherwise normal exam. ADVERSE EVENTS: There were no complications. IMPRESSIONS: 1. Minimal redness in the body of the stomach biopsy to rule out H. pylori otherwise normal exam 2. Retroflexed views revealed no abnormalities RECOMMENDATIONS: 1. Await biopsy results. Biopsy results will not be ready for 7-10 days. If you don't hear from us in two weeks, call our office for biopsy results. 2. This could be related to gastroparesis since the patient is diabetic so recommend diabetic control Weight loss Gastric emptying study PATIENT CONDITION: stable DISPOSITION: Inpatient REPEAT EXAM: NONE Maribel Truong MD eSigned: Maribel Truong MD 06/15/2018 11:02 AM cc:
[2018-06-15 11:16] VITALS: RESP 16
[2018-06-15 13:35] VITALS: BP 133/85; PULSE 72; TEMP 98.2
--- NOTE | 2018-06-15 15:05 | P.PNFP ---
Subjective Interval history: Stratus was used for this encounter- Bella [id number] Ms Tobias is returning from EGD. She reports moderate abdominal pain, no change from previous days. She denies any nausea or vomiting. She reports 1-2 bowel movements per day which is lessened from her usual. She is anxious to go home. <Sara Marinelli - 06/15/18 15:14> Results - Labs Result diagrams: 06/13/18 06:02 06/13/18 06:02 <Alesha Avila - 06/18/18 14:24> Abnormal lab results 06/14/18 06/14/18 06/15/18 Range/Units 18:06 19:50 06:52 POC Glucose 111 H 175 H 122 H (68-110) mg/dl <Sara Marinelli 06/15/18 15:05> - Imaging Impressions Lumbar Spine X-Ray 06/14/18 00:00 CONCLUSION: Mild to moderate degenerative disc disease. No acute findings. <Sara Marinelli 06/15/18 15:05> Physical Exam Vital signs: Vital Signs 06/14/18 16:00 06/14/18 17:29 06/14/18 20:00 Temperature 97.3 F L 97.6 F Pulse Rate 90 90 Respiratory Rate 20 18 Blood Pressure 127/78 150/88 H Pulse Oximetry 95 95 96 06/15/18 00:00 06/15/18 04:00 06/15/18 08:00 Temperature 97.9 F 97.3 F L Pulse Rate 72 62 84 Respiratory Rate 17 17 Blood Pressure 144/81 H 148/97 H Pulse Oximetry 98 96 94 L 06/15/18 11:14 06/15/18 13:34 Temperature 97.4 F L 98.2 F Pulse Rate 71 72 Respiratory Rate 16 16 Blood Pressure 126/57 L 133/85 Pulse Oximetry 93 L 98 Intake & Output 06/14/18 06/15/18 06/15/18 18:59 06:59 18:59 Intake Total 360 / 360 240 / 240 50 / 50 Output Total 3 / 3 0 / 0 Balance 357 / 357 240 / 240 50 / 50 Weight 113.5 kg Intake: IV 50 / 50 LR 1000 mL Inj 1,000 ML @ 30 50 / 50 mls/hr IV.SIG .Q24H [facility] Rx#: [id number] Oral 360 / 360 240 / 240 Output: Urine 3 / 3 Estimated Blood Loss 0 / 0 Other: # Voids 2 Date of Last Bowel Movement 06/14/18 # Bowel Movements 1 <Sara Marinelli - 06/15/18 15:05> Narrative: GENERAL: Resting in bed SKIN: Warm and dry. HEAD: Normocephalic. EYES: No scleral icterus. No injection or drainage. NECK: Supple, trachea midline. No JVD or lymphadenopathy. CARDIOVASCULAR: Regular rate and rhythm without murmurs, gallops, or rubs. RESPIRATORY: Breath sounds equal bilaterally. No accessory muscle use. GASTROINTESTINAL: Normoactive bowel sounds. Diffusely tender to light palpation. Abdomen soft, nondistended. MUSCULOSKELETAL: No cyanosis, or edema. <Sara Marinelli - 06/15/18 15:14> Assessment and Plan - Assessment (1) Dizziness Code(s): R42 - Dizziness and giddiness Status: Acute (2) Oxygen desaturation during sleep Code(s): G47.34 - Idiopathic sleep related nonobstructive alveolar hypoventilation Status: Acute (3) Abdominal pain Code(s): R10.9 - Unspecified abdominal pain Status: Acute (4) Hypertension Code(s): I10 - Essential (primary) hypertension Status: Acute (5) Diabetes mellitus Code(s): E11.9 - Type 2 diabetes mellitus without complications Status: Acute (6) Diabetic gastroparesis Code(s): E11.43 - Type 2 diabetes mellitus with diabetic autonomic (poly) neuropathy; K31.84 - Gastroparesis Status: Acute (7) Nutrition, metabolism, and development symptoms Code(s): R63.8 - Other symptoms and signs concerning food and fluid intake Status: Acute <Alesha Avila - 06/18/18 14:24> (1) Dizziness Code(s): R42 - Dizziness and giddiness Status: Acute Plan: Patient reports episode of extreme dizziness accompanied by nausea when out of bed. She states that this is stable since her admission. -Reattempt Jesus maneuver on outpatient basis (2) Oxygen desaturation during sleep Code(s): G47.34 - Idiopathic sleep related nonobstructive alveolar hypoventilation Status: Acute Plan: Patient experiences shortness of breath with activity specifically standing and ambulating. Not associated with any chest pain or changes in vision. - Continue to monitor O2 saturations -Consider outpatient study for sleep apnea (3) Abdominal pain Code(s): R10.9 - Unspecified abdominal pain Status: Acute Plan: Patient continues to have diffuse abdominal pain -EGD revealed only erythema of esophagus likely related to gastroparesis -Recommend patient follow-up outpatient with gastric emptying study -Bowel movements have lessened -Continue Reglan and Erythromycin (4) Hypertension Code(s): I10 - Essential (primary) hypertension Status: Acute Plan: Continue with blood pressure medication (5) Diabetes mellitus Code(s): E11.9 - Type 2 diabetes mellitus without complications Status: Acute Plan: Patient with history of diabetes. Patient normally on metformin at home. - Accu-Cheks - Low-dose siding scale insulin (6) Diabetic gastroparesis Code(s): E11.43 - Type 2 diabetes mellitus with diabetic autonomic (poly) neuropathy; K31.84 - Gastroparesis Status: Acute Plan: Patient abdominal pain may be a complication of her gastroparesis. Continue with home medication. -Continue erythromycin -Zofran for nausea as needed (7) Nutrition, metabolism, and development symptoms Code(s): R63.8 - Other symptoms and signs concerning food and fluid intake Status: Acute Plan: Fluids: Not indicated at this time Electrolytes: replace as needed Nutrition diabetic diet DVT prophylaxis SCDs <Sara Marinelli - 06/15/18 16:03> - Assessment and Plan Discharge Planning: Plans for D/c today or tomorrow pending walk test <Sara Marinelli - 06/15/18 16:07> - Attending Attestation The exam, history, and the medical decision-making described in the above note were completed with the assistance of the resident physician. I reviewed and agree with the findings presented. I attest that I had a [id number] encounter with the patient on the same day, and personally performed and documented my assessment and findings in the medical record. she does not have COPD. she has sleep apnea based on desatting into the 60s when she sleeps. <Alesha Avila - 06/18/18 14:24> <Sara Marinelli E - Last Filed: 06/15/18 16:03> (3) Abdominal pain Qualifiers: Abdominal location: right upper quadrant Qualified Code(s): R10.11 - Right upper quadrant pain (4) Hypertension Qualifiers: Hypertension type: essential hypertension Qualified Code(s): I10 - Essential (primary) hypertension (5) Diabetes mellitus Qualifiers: Diabetes mellitus type: type 2 Diabetes mellitus complication status: with neurologic complications Diabetes mellitus complication detail: with unspecified neuropathy <Alesha Avila M - Last Filed: 06/18/18 14:24> (3) Abdominal pain Qualifiers: Abdominal location: right upper quadrant Qualified Code(s): R10.11 - Right upper quadrant pain (4) Hypertension Qualifiers: Hypertension type: essential hypertension Qualified Code(s): I10 - Essential (primary) hypertension (5) Diabetes mellitus Qualifiers: Diabetes mellitus type: type 2 Diabetes mellitus complication status: with neurologic complications Diabetes mellitus complication detail: with unspecified neuropathy <Sara Marinelli E - Last Filed: 06/15/18 16:03> (3) Abdominal pain Qualifiers: Abdominal location: right upper quadrant Qualified Code(s): R10.11 - Right upper quadrant pain (4) Hypertension Qualifiers: Hypertension type: essential hypertension Qualified Code(s): I10 - Essential (primary) hypertension (5) Diabetes mellitus Qualifiers: Diabetes mellitus type: type 2 Diabetes mellitus complication status: with neurologic complications Diabetes mellitus complication detail: with unspecified neuropathy <Alesha Avila - Last Filed: 06/18/18 14:24> (3) Abdominal pain Qualifiers: Abdominal location: right upper quadrant Qualified Code(s): R10.11 - Right upper quadrant pain (4) Hypertension Qualifiers: Hypertension type: essential hypertension Qualified Code(s): I10 - Essential (primary) hypertension (5) Diabetes mellitus Qualifiers: Diabetes mellitus type: type 2 Diabetes mellitus complication status: with neurologic complications Diabetes mellitus complication detail: with unspecified neuropathy
[2018-06-15 16:45] VITALS: O2SAT 98
--- NOTE | 2018-07-29 11:17 | P.DS ---
Date of admission: 06/12/18 15:34 Primary care physician: Judi Lopez MD Brief History from admission: Patient is a 48-year-old female with past medical history of diabetes complicated by gastroparesis, hypertension, and vertigo who presented to the ED with complaints of dizziness and nausea accompanied by Right sided abdominal pain. Patient reports that around 4 AM she was getting up to use the bathroom , she felt dizzy and laid in bed. She stated that she had a feeling like she was sinking. she reports a Right sided abdominal pain radiating to her right lower back. Denies any vomiting. She also reports pressure-like nonradiating midsternal chest pain brought on by deep breathing. Patient reports that when she lays flat she feels short of breath and usually sleeps propped with 3 pillows. Endorses generalized fatigue. Denies falling, fever, chills, LE swelling, diarrhea, dysuria and LOC. At home patient patient blood sugar was 126 and her blood pressure was 134/90 during this episode. Of note patient also has a history of panic attacks last panic attack occurred 6 months ago due to the passing of her mother. In the ED patient was noted to have 2 episodes of O2 desaturation to the low 60s when asleep. Her saturations returned back to 9697% when she was awakened. Based on her multiple problems including trying to vomit forcefully and spitting out a small quantity of blood plus the low O2 sats, she was recommended for admission. This am she states he dizziness is worse when she turns her head from side to side or otherwise moves her head when changing positions like standing up or sitting down. She also complained of continuing abdominal pain. Erythromycin was attempted to see if it would help her gastroparesis and it seemed to but she was still having pain and other problems. Per her oldest son who was in the room, she has seen GI in the past and has had multiple tests but no evaluations for at least 3 years and she keeps getting worse. she is almost exclusively urdu speaking so her interview was aided by her son and Dr Granado today. DS: Diagnosis - Discharge Diagnosis (1) Dizziness Status: Acute (2) Oxygen desaturation during sleep Status: Acute (3) Abdominal pain Status: Acute (4) Hypertension Status: Acute (5) Diabetes mellitus Status: Acute (6) Diabetic gastroparesis Status: Acute (7) Nutrition, metabolism, and development symptoms Status: Acute DS: Medications - Discharge Medications Prescriptions: erythromycin ethylsuccinate [E.E.S. Granules] 100 mg PO AC #100 ml DS: Summary Hospital Course: Ms. Tobias was admitted on 06/12 for nausea, vomiting, right sided abdominal pain , dizziness. Patient was started on erythromycin which seemed to improve the abdominal pain. GI was consulted and recommended EGD, Reglan, blood glucose control, lumbar x-rays. Patient was noted to be desatting during sleep, but recovered well during the day. Jesus maneuver was attempted by physical therapy with minimal improvement of dizziness. EGD was done on 06/15 and revealed mild erythema in the body the stomach. Biopsies were taken. Recommendations were weight loss, gastric emptying, awaiting the biopsy results. Patient was clinically improved, did not have further episodes of descending overnight. She was discharged home on 06/15 with family - Time Spent with Patient Total time spent providing and/or coordinating discharge services: Less than 30 minutes - Quality: VTE Deep Vein Thrombosis/Pulmonary Embolism Present on Admission: No Results Procedures completed during hospitalization: 06/15- EGD with biopsies taken Completed studies during hospitalization: Pending at discharge 06/15/18 13:09 Surgical [PTH] Routine - Impressions ITS Impressions Abdomen/Pelvis CT 06/12/18 06:42 CONCLUSION: 1. Fatty liver. 2. Radiopaque densities in the patient's rectum not present previously of uncertain etiology. Head CT 06/12/18 06:47 CONCLUSION: No acute intracranial abnormality is identified. Thoracic Spine X-Ray 06/13/18 00:00 CONCLUSION: Minimal degenerative change. Lumbar Spine X-Ray 06/14/18 00:00 CONCLUSION: Mild to moderate degenerative disc disease. No acute findings. Discharge Plan - Discharge Disposition Patient Disposition: 01 Discharge Home - Discharge Condition Condition: Stable - Discharge Order Discharge Orders: Discharge Order (Routine); Ordered 06/15/18 Ordered By: Ascencion Mariano - Discharge Details Anticipated Discharge Date: 06/15/18 Discharge Comment: To be discharged if tolerates PO, also requires walk test prior to discharge - Physicians Team Primary Care Provider: Judi Lopez Attending Provider: Alesha Avila Other Providers: Andrew Gonzalez MD
== END 2018-06-15 18:41 | disposition home or self-care (01) ==
LOC: NEDA 06:23 → NEPC 06:23 → N04 06:23
PROVIDERS: ADMIT Family Medicine; ATTEND Family Medicine
PROC: PANENDO (2018-06-15 10:34)